=== PATIENT | male | born 1950 | race Caucasian/White ===

== ENCOUNTER 2017-09-05 17:25 | Emergency (ER) | payer MEDICARE, OTHER ==
--- OUTSIDE RECORDS SUMMARY | 2017-09-05 17:41 | XMS REPORT ---
:1950 External Reference #:[id number] Author Organization [facility] Address [address] [address] Phone [phone] Care Team Providers Name Role Phone Primitivo Miranda MD Care Team Information Hvac Service Manager Unavailable Will Candelario MD Primary Care Physician Unavailable Payers Type Date Identification Numbers Payment Provider Subscriber Medicare Primary Policy Number: [id number] Medicare Ian Wagner PayID: [id number] [address] [place] [address] Medigap Part B Policy Number: [id number] For Life Ian Wagner PayID: [id number] [address] [place] [address] Problems Date Description Provider Status Onset: 11/23/2011 Coronary arteriosclerosis Antonio Meraz M.D. Active Onset: 11/23/2011 Premature beats Antonio Meraz M.D. Active Onset: 11/23/2011 Hyperlipidemia Antonio Meraz M.D. Active Onset: 11/23/2011 Benign essential hypertension Antonio Meraz M.D. Active Onset: 11/23/2011 Morbid obesity Antonio Meraz M.D. Active Onset: 07/26/2012 Electrocardiogram abnormal Antonio Meraz M.D. Active Onset: 07/26/2012 Right bundle branch block Antonio Meraz M.D. Active Onset: 09/10/2015 Essential hypertension Antonio Meraz M.D. 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 ETOH Use Denies alcohol use Smoking Patient is a former smoker 1 1/2 pk daily smoked 35 yrs quit in 1999 Recreational Drug Use Denies Drug Use Daily Caffeine Consumes on average 5 cups of regular coffee per day Enjoy Exercising Regular Exercise Type/Frequency Exercises regularly Allergies, Adverse Reactions, Alerts Date Description Reaction Status Severity Comments 12/01/2010 NKDA active Medications Medication Date Status Form Strength Qnty SIG Indications Ordering Provider Prilosec OTC 08/31/ Active Tablets DR 20mg Pt states Nabor PReece 2017 this is MD Judith occasional Toprol XL 01/09/ Active Tablets ER 25mg 90tab 1 by mouth Antonio 2010 24HR s every day Lion Meraz M.D. B 12 / Active Capsules 30cap 1 po qd Unknown 0000 s Flintstones / Active Chewtabs 60mg daily Unknown Complete 0000 Aspir-Low / Active Tablets DR 81mg 1 by mouth Unknown 0000 every day Valacyclovir / Active Tablets 1gm 1 tablets Unknown HCL 0000 every 8 hours for 7 days Lisinopril / Hx Tablets 20mg 1 po qd Unknown 0000 - 2012 Zocor / Hx Tablets 20mg 30tab 1 po qhs Unknown 0000 - s 2012 Nasonex / Hx Suspension 50mcg/Act 1unit 2 sprays to Unknown 0000 - s each 03/28/ tril 2012 twice daily Ferrous / Hx Tablets 325(65Fe) 1 po qd Unknown Sulfate 0000 - mg 2012 Asa / Hx 81mg 30uni 1 po qd Unknown 0000 ts Caltrate / Hx Chewtabs 600mg 1 po daily Unknown 0000 - 2012 Vital Signs Date Vital Result Comment 08/26/2017 Height 72 inches 6'0" Weight 198.00 lb with shoes Heart Rate 58 /min BP Systolic 124 mmHg L/Arm Reg Cuff BP Diastolic 78 mmHg L/Arm Reg Cuff BMI (Body Mass Index) 26.9 kg/m2 Ejection Fraction 55-60% Echocardiogram 12/25/2016 11/30/2016 Height 72 inches 6'0" Weight 195.00 lb with shoes Heart Rate 72 /min BP Systolic Sitting 126 mmHg LA reg cuff BP Diastolic Sitting 78 mmHg LA reg cuff BMI (Body Mass Index) 26.4 kg/m2 Ejection Fraction 50% - 55% echo 01/12/11 08/31/2016 Height 72 inches 6'0" Weight 191.00 lb Heart Rate 68 /min BP Systolic 132 mmHg BP Diastolic 82 mmHg Respiratory Rate 16 /min Body Temperature 97.6 F BMI (Body Mass Index) 25.9 kg/m2 05/21/2016 Height 72 inches 6'0" Weight 189.00 lb with shoes Heart Rate 62 /min BP Systolic Sitting 126 mmHg LA lrg cuff BP Diastolic Sitting 80 mmHg LA lrg cuff BMI (Body Mass Index) 25.6 kg/m2 Ejection Fraction 50% - 55% echo 01/12/11 11/29/2015 Height 72 inches 6'0" Weight 189.50 lb Heart Rate 60 /min BP Systolic Sitting 132 mmHg LA reg cuff BP Diastolic Sitting 78 mmHg LA reg cuff BP Systolic Standing 130 mmHg LA BP Diastolic Standing 78 mmHg LA Respiratory Rate 16 /min BMI (Body Mass Index) 25.7 kg/m2 09/10/2015 Height 72 inches 6'0" Weight 187.25 lb w/shoes Heart Rate 62 /min BP Systolic Sitting 126 mmHg LA reg cuff BP Diastolic Sitting 74 mmHg LA reg cuff BMI (Body Mass Index) 25.4 kg/m2 Ejection Fraction 50-55 echo 01/12/11 11/13/2014 Height 72 inches 6'0" Weight 181.75 lb w/ shoes Heart Rate 70 /min BP Systolic Sitting 128 mmHg LA, reg BP Diastolic Sitting 70 mmHg LA, reg BMI (Body Mass Index) 24.6 kg/m2 Ejection Fraction 65% 01/15/11 Cath 05/18/2014 Height 72 inches 6'0" Weight 175.00 lb with shoes Heart Rate 60 /min BP Systolic Sitting 130 mmHg LA reg cuff BP Diastolic Sitting 80 mmHg LA reg cuff BP Systolic Standing 132 mmHg LA reg cuff BP Diastolic Standing 84 mmHg LA reg cuff Respiratory Rate 16 /min BMI (Body Mass Index) 23.7 kg/m2 11/27/2013 Height 72 inches 6'0" Weight 179.00 lb Heart Rate 76 /min BP Systolic Sitting 142 mmHg BP Diastolic Sitting 72 mmHg BMI (Body Mass Index) 24.3 kg/m2 03/28/2013 Height 72 inches 6'0" Weight 165.00 lb Heart Rate 54 /min BP Systolic 116 mmHg BP Diastolic 64 mmHg BMI (Body Mass Index) 22.4 kg/m2 07/26/2012 Height 72 inches 6'0" Weight 195.00 lb Heart Rate 68 /min BP Systolic Sitting 124 mmHg has not taken meds today BP Diastolic Sitting 88 mmHg has not taken meds today Respiratory Rate 20 /min BMI (Body Mass Index) 26.4 kg/m2 11/23/2011 Height 72 inches 6'0" Weight 298.00 lb Heart Rate 71 /min BP Systolic 132 mmHg BP Diastolic 78 mmHg BMI (Body Mass Index) 40.4 kg/m2 01/21/2011 Height 72 inches 6'0" Weight 296.00 lb Heart Rate 72 /min BP Systolic Sitting 128 mmHg BP Diastolic Sitting 62 mmHg BMI (Body Mass Index) 40.1 kg/m2 12/01/2010 Height 72 inches 6'0" Weight 301.25 lb Heart Rate 88 /min BP Systolic Sitting 150 mmHg L BP Diastolic Sitting 82 mmHg L BMI (Body Mass Index) 40.9 kg/m2 Results Test Date Test Result H/L Range Note Iron & Iron Binding Capacity 08/17/2016 Iron 116 g/dL 50-212 Unsaturated Iron Binding 175 g/dL Total Iron Binding Capacity 291 g/dL 250-450 % Iron Saturation 40 % 15-55 Comp Metabolic Panel 08/17/2016 Sodium 137 mmol/L 133-145 Potassium 4.8 mmol/L 3.5-5.0 Chloride 102 mmol/L 101-111 Co2 Carbon Dioxide 32 mmol/L 22-32 Anion Gap 3 mmol/L 2-11 Glucose 97 mg/dL 70-100 Blood Urea Nitrogen 10 mg/dL 6-24 Creatinine 0.82 mg/dL 0.67-1.17 BUN/Creatinine Ratio 12.2 8-20 Calcium 9.8 mg/dL 8.6-10.3 Total Protein 6.5 g/dL 6.4-8.9 Albumin 4.0 g/dL 3.2-5.2 Globulin 2.5 g/dL 2-4 Albumin/Globulin Ratio 1.6 1-3 Total Bilirubin 0.60 mg/dL 0.2-1.0 Alkaline Phosphatase 45 U/L 34-104 Alt 15 U/L 7-52 Ast 18 U/L 13-39 Egfr Non- 93.4 >60 Egfr 120.2 >60 1 Bariatric Panel Post Op 08/17/2016 Vitamin B12 390 pg/mL 180-914 2 Folic Acid (Folate) > 20.00 ng/mL >3.99 3 Vitamin B1 (Whole Blood) 178 nmol/L 70-180 4 Vitamin E Level 8.8 mg/L 5.5 - 17.0 5 Laboratory test finding 11/28/2015 PSA Diagnostic < 0.008 ng/mL 0-4.0 6 Laboratory test finding 07/02/2014 Ferritin 134.2 ng/mL 24-336 7, 8 Vitamin B12 355 pg/mL 180-914 7, 9 Folate > 20.00 ng/mL >3.99 7, 10 Vitamin B1 Whole Blood 175 nmol/L 70-180 7, 11 Vitamin E Level 11.4 mg/L 5.5 - 17.0 7, 12 Iron & Iron Binding Capacity 07/02/2014 Iron 111 g/dL 50-212 7 Unsaturated Iron Binding 169 g/dL 7 Total Iron Binding Capacity 280 g/dL 250-450 7 % Iron Saturation 40 % 15-55 7 Comp Metabolic Panel 07/02/2014 Sodium 135 mmol/L 133-145 7 Potassium 4.2 mmol/L 3.5-5.0 7 Chloride 102 mmol/L 101-111 7 Co2 Carbon Dioxide 28 mmol/L 22-32 7 Anion Gap 5 mmol/L 2-11 7 Glucose 96 mg/dL 70-100 7 Blood Urea Nitrogen 12 mg/dL 6-24 7 Creatinine 0.72 mg/dL 0.67-1.17 7 BUN/Creatinine Ratio 16.7 8-20 7 Calcium 9.2 mg/dL 8.6-10.3 7 Total Protein 6.9 g/dL 6.4-8.9 7 Albumin 4.1 g/dL 3.2-5.2 7 Globulin 2.8 g/dL 2-4 7 Albumin/Globulin Ratio 1.5 1-3 7 Total Bilirubin 0.60 mg/dL 0.2-1.0 7 Alkaline Phosphatase 47 U/L 34-104 7 Alt 16 U/L 7-52 7 Ast 20 U/L 13-39 7 Egfr Non- 109.2 >60 7 Egfr 140.5 >60 7, 13 CBC Auto Diff 07/02/2014 White Blood Count 4.8 10^3/uL 4.8-10.8 7 Red Blood Count 5.25 10^6/uL 4.0-5.4 7 Hemoglobin 15.3 g/dL 14.0-18.0 7 Hematocrit 46 % 42-52 7 Mean Corpuscular Volume 87 fL 80-94 7 Mean Corpuscular Hemoglobin 29 pg 27-31 7 Mean Corpuscular HGB Conc 34 g/dL 31-36 7 Red Cell Distribution Width 14 % 10.5-15 7 Platelet Count 173 10^3/uL 150-450 7 Mean Platelet Volume 8 um3 7.4-10.4 7 Abs Neutrophils 2.8 10^3/uL 1.5-7.7 7 Abs Lymphocytes 1.2 10^3/uL 1.0-4.8 7 Abs Monocytes 0.7 10^3/uL 0-0.8 7 Abs Eosinophils 0.1 10^3/uL 0-0.6 7 Abs Basophils 0 10^3/uL 0-0.2 7 Abs Nucleated RBC 0.01 10^3/uL 7 Granulocyte % 58.7 % 38-83 7 Lymphocyte % 25.2 % 25-47 7 Monocyte % 14.0 % High 1-9 7 Eosinophil % 1.1 % 0-6 7 Basophil % 1.0 % 0-2 7 Nucleated Red Blood Cells % 0.2 7 1 Because ethnic data is not always readily available, this report includes an eGFR for both -Americans and non- Americans. The National Kidney Disease Education Program (NKDEP) does not endorse the use of the MDRD equation for patients that are not between the ages of 18 and 70, are , have extremes of body size, muscle mass, or nutritional status, or are non- or non-. According to the National Kidney Foundation, irrespective of diagnosis, the stage of the disease is based on the level of kidney function: Stage Description GFR(mL/min/1.73 m(2)) 1 Kidney damage with normal or decreased GFR 90 2 Kidney damage with mild decrease in GFR 60-89 3 Moderate decrease in GFR 30-59 4 Severe decrease in GFR 15-29 5 Kidney failure <15 (or dialysis) 2 Normal Range 180 to 914 Indeterminate Range 145 to 180 Deficient Range <145 3 FASTING 4 ADDITIONAL INFORMATION This test was developed and its performance characteristics determined by [facility] in a manner consistent with CLIA requirements. This test has not been cleared or approved by the U.S. Food and Drug Administration. Test Performed by: [facility] [place] [address] Roll On Man: Conrad Campos II, M.D., Ph.D. 5 ADDITIONAL INFORMATION This test was developed and its performance characteristics determined by [facility] in a manner consistent with CLIA requirements. This test has not been cleared or approved by the U.S. Food and Drug Administration. Test Performed by: [facility] [place] [address] Roll On Man: Conrad Campos II, M.D., Ph.D. 6 Serum levels of PSA measured using the Yudy Clacendix DXI Hybritech immunoassay should not be interpreted as absolute evidence of the presence or absence of disease. The PSA value should be used in conjunction with other pertinent clinical diagnostic procedures. A PSA value in the range of 0.1 to 0.6 ng/ml is indeterminate if being used as an indicator of recurrent or residual disease. The values obtained with different assay methods or kits cannot be used interchangeably. 7 FASTING 8 FASTING 9 Normal Range 180 to 914 Indeterminate Range 145 to 180 Deficient Range <145 10 FASTING 11 Test Performed by: [place] [address] Roll On Man: Heide Cheema, Ph.D. 12 Test Performed by: [place] [address] Roll On Man: Heide Cheema, Ph.D. 13 Because ethnic data is not always readily available, this report includes an eGFR for both -Americans and non- Americans. The National Kidney Disease Education Program (NKDEP) does not endorse the use of the MDRD equation for patients that are not between the ages of 18 and 70, are , have extremes of body size, muscle mass, or nutritional status, or are non- or non-. According to the National Kidney Foundation, irrespective of diagnosis, the stage of the disease is based on the level of kidney function: Stage Description GFR(mL/min/1.73 m(2)) 1 Kidney damage with normal or decreased GFR 90 2 Kidney damage with mild decrease in GFR 60-89 3 Moderate decrease in GFR 30-59 4 Severe decrease in GFR 15-29 5 Kidney failure <15 (or dialysis) Procedures Date CPT Code Description Status 08/26/2017 26405 EKG Tracing & Interpretation Completed 01/27/2017 25048 Treadmill Interp/Report Only Completed 01/27/2017 01153 Stress Test Supervsn W/Out I/R Completed 12/25/2016 86951 ECHO Transthoracic, Real-Time 2D With Doppler And Color Completed Flow 11/30/2016 82809 EKG Tracing & Interpretation Completed 05/21/2016 97343 EKG Tracing & Interpretation Completed 11/29/2015 43463 EKG Tracing & Interpretation Completed 09/10/2015 18886 EKG Tracing & Interpretation Completed 03/14/2015 86431 Treadmill Interp/Report Only Completed 03/14/2015 54443 Stress Test Supervsn W/Out I/R Completed 11/13/2014 01354 EKG Tracing & Interpretation Completed 11/27/2013 95233 EKG Tracing & Interpretation Completed 10/26/2013 89731 Holter Monitoring 24 HR New Completed 03/28/2013 09280 EKG Tracing & Interpretation Completed 08/16/2012 64472 Holter Monitoring 24 HR New Completed 07/26/2012 19012 EKG Tracing & Interpretation Completed 11/23/2011 96147 EKG Tracing & Interpretation Completed 01/12/2011 34735 ECHO Transthoracic, Real-Time 2D With Doppler And Color Completed Flow 01/12/2011 14545 ECHO Transthoracic, Real-Time 2D With Doppler And Color Completed Flow 01/12/2011 95220 Holter Monitor Completed 01/12/2011 20416 Holter Monitor Completed 01/12/2011 73469 Holter Monitoring 24 HR New Completed 01/08/2011 23357 Treadmill Interp/Report Only Completed 01/08/2011 38801 Stress Test Supervsn W/Out I/R Completed 12/01/2010 64981 EKG Tracing & Interpretation Completed Encounters Type Date Location Provider CPT E/M Dx Office Visit 11/30/2016 1:40p [facility] [place]. [address] I25.10 Chuy Meraz I10 I45.19 E78.4 Office Visit 08/31/2016 10:15a [facility] [place] [address] Z98.84 [facility] Office Visit 05/21/2016 9:00a [facility] Qutaybeh S. [address]855 I25.10 Chuy Meraz I10 I45.19 I49.3 Office Visit 11/29/2015 11:00a [facility] NIKOLE Reyes [address]3226 I25.10 I10 I45.19 I49.3 Office Visit 09/10/2015 11:00a [facility] Qutaybeh SReece Meraz, 86382 I25.10 Chuy R94.31 I10 E78.4 I45.19 Office Visit 11/13/2014 1:20p [facility] Mildredtaybeh SReece Meraz, 83507 401.1 M.DReece 414.01 272.4 794.31 426.4 Office Visit 05/18/2014 1:30p [facility] NIKOLE Reyes [id number] 401.1 414.01 272.4 794.31 Office Visit 11/27/2013 9:00a [facility] Reece, [address]79 427.69 M.D. 401.1 414.01 272.4 794.31 Office Visit 03/28/2013 8:40a [facility] Meraz, [address] 427.69 M.D. 401.1 414.01 272.4 794.31 Office Visit 08/10/2012 1:30p [facility] [place] [address] 401.1 Office Visit 07/26/2012 10:00a [facility] Lion Reece, 623[address] 414.01 M.D. 427.69 272.4 794.31 426.4 Office Visit 11/23/2011 10:00a [facility] Alysha. [address] 414.01 [facility] Chuy Meraz 427.69 272.4 401.1 278.01 Office Visit 01/21/2011 10:00a [facility] Alysha Chevy, 52430 414.01 M.D. 427.69 272.4 401.1 278.01 Office Visit 01/08/2011 9:30a [facility] Lion Reece, 37495 794.31 M.D. 427.69 427.1 401.1 v72.81 Office Visit 12/01/2010 10:20a [facility] Reece, 609[address] 786.05 M.D. 794.31 427.69 782.3 272.4 401.1 Plan of Care 08/26/2017 - Antonio Meraz M.D.I25.10 [facility] heart disease of [place] coronary artery w/o ang pctrsNew Orders:Stress Test, Pharmacologic Nuclear ( Lexiscan)EchocardiogramFollow up:9 months ovI10 Essential (primary) hbaopcpbxzwkF31.19 Other right bundle-branch bksvbY43.3 Ventricular premature depolarization
--- OUTSIDE RECORDS SUMMARY | 2017-09-05 17:42 | XMS REPORT ---
:1950 External Reference #:[id number] Author Organization [facility] Address [address] [place] [address] Phone [phone] Care Team Providers Name Role Phone Will Candelario MD Care Team Information Director Of Outside Sales Unavailable Will Candelario MD Primary Care Physician Unavailable Payers Type Date Identification Numbers Payment Provider Subscriber Medicare Primary Effective: Policy Number: Medicare [place] Ian Wagner 2014 [id number] PayID: [id number] [address] [place] [address] Medigap Part B Effective: Policy Number: Rohan Garcia 2008 [id number] Expires: 2017 PayID: [id number] [address] Attn: [place] [address] Commercial Effective: Policy Number: Jose Wagner 2013 [id number] [facility] To [facility] PayID: [id number] [address] [place] [address] Problems Date Description Provider Status Onset: 12/20/2012 Hyperlipidemia Will Candelario M.D. Active Onset: 09/13/2012 Eruption Will Candelario M.D. Active Onset: 06/28/2012 Bariatric Surgery Status Will Candelario M.D. Active Onset: 10/14/2011 Conduction disorder of the heart Will Candelario M.D. Active Onset: 10/14/2011 Cataract Will Candelario M.D. Active Onset: 07/24/2010 Essential hypertension Master Murray M.D. Active Social History Description No Information Available Allergies, Adverse Reactions, Alerts Date Description Reaction Status Severity Comments 10/14/2011 NKDA active Medications Medication Date Status Form Strength Qnty SIG Indications Ordering Provider Valtrex 08/20/ Active Tablets 1gm 21tab take one Sis CReece 2017 s by mouth Silvino, three LUMBER PULLER times daily for 1 week Lotrisone 09/13/ Active Cream 1-0.05% 30uni use on Sis C. 2012 ts skin twice Silvino, a day LUMBER PULLER Multi-Vitamin / Active Unknown With Iron 0000 Toprol XL / Active 25mg 1 po qd Unknown 0000 Vitamin B-12 / Active Tablets Sub 1000mcg 30tab 1 po qd Unknown 0000 s Aspirin Adult / Active Tablets DR 81mg 1 by mouth Unknown Low Strength 0000 every day Diflucan 08/06/ Hx Tablets 150mg 2tabs 1 po times Will Bundy 2012 - day, november, 09/13/ repeat in M.D. 2012 5-7d Ketoconazole 06/28/ Hx Cream 2% 30gm apply thin Joan 2012 - layer Sherry, 08/19/ twice a [employer]ERSON 2017 to affected area. Iron 11/03/ Hx Tablets 325(65Fe) 90tab 1 po qd Primitivo Gutierrez 2010 - mg s Ruth 10/13/ M.D. 2011 Lisinopril 10/27/ Hx Tablets 20mg 90tab Take One Langford AReece 2010 - s Tablet By Ruth, 06/28/ Mouth Once M.D. 2011 Daily Wheelchair 10/06/ Hx 1unit for Will Bundy 2010 - s severe Breiman, 10/06/ arthritis M.D. 2010 Nasonex 09/15/ Hx Suspension 50mcg/Act 1unit 2 Will Bundy 2010 - s sprays/nos Breiman, 06/28/ tril/day M.D. 2011 Nasonex 09/15/ Hx Suspension 50mcg/Act 1unit Use 2 Will Bundy 2010 - s Sprays In [facility], 08/28/ Each M.D. 2015 Nostril Once Daily Work Note 07/24/ Hx no work Master Vogel 2010 - 07/22-07/25 Midura, 10/06/ due to M.D. 2011 illness Augmentin 09/28/ Hx Tablets 875mg 28tab 1 po bid Tamia 2008 - s with food von 04/16/ Felten, 2008 M.D. take with yogurt Zocor 08/02/ Hx Tablets 20mg 30tab Take One Will Bundy 2007 - s Tablet By Andree, 06/28/ Mouth At M.D. 2011 Bedtime Zocor 08/02/ Hx Tablets 20mg 30tab Take One Will Bundy 2007 - s Tablet By Andree, 06/28/ Mouth At M.D. 2011 Bedtime Zocor 01/25/ Hx Tablets 20mg 30tab 1 po qhs Will Bundy 2007 - s Melanyimadenis, 08/02/ M.D. 2008 Zestril 04/24/ Hx Tablets 10mg 90tab 1 po qd Will Bundy 2002 - s Andree, 10/27/ M.D. 2010 Augmentin 09/07/ Hx 875mg 20uni 1 po bid Master Jaspreet 2002 - ts Midura, 03/20/ M.D. 2008 Lipitor 08/15/ Hx Tabs 10mg 30tab 1 po qd Will Bundy 2002 - s Andree, 01/25/ M.D. 2007 Lidex Cream 08/15/ Hx 0.5% 30gm apply bid Will Bundy 2002 - Andree, 12/17/ M.D. 2006 Elavil 06/28/ Hx 10mg 50uni 1-2 PO QHS Jimmie Seymour 2001 - ts Mario, 10/17/ M.D. 2003 Valtrex 06/17/ Hx 500mg 42uni 2 Tabs tid Jimmie Seymour 2001 - ts X 7D [place], 06/24/ M.D. 2002 Calan SR 02/11/ Hx Tablets 240mg 90tab 1qd Will Bundy 1999 - s Andree, 04/24/ M.D. 2003 Dyazide 12/15/ Hx 37.5/25 30uni 1 PO qd Jimmie Seymour 1999 - ts [place], 08/14/ M.D. 2004 Augmentin 10/28/ Hx Piyush Spivey 1998 - [place], 11/07/ M.D. 1998 Cortisporin 10/28/ Hx Solution 15cc 3-4 gtts Piyush Spivey Otic 1998 - To L Ear Veronica, 11/27/ tid M.DReece 1998 Zyrtec 10/09/ Hx Tabs 10mg 30tab 1 PO qd Naida 1998 - s Derrick, 04/15/ Maggie-C 2000 Vitamin D 3 / Hx Unknown 0000 - 2011 Medications Administered in Office Medication Date Status Form Strength Qnty SIG Indications Ordering Provider Injection 04/22/ Administered Injection Will Bundy Subcutaneous Or 2009 Breiman, Intramuscular M.DReece Vital Signs Date Vital Result Comment 08/20/2017 BP Systolic 134 mmHg BP Diastolic 72 mmHg Heart Rate 78 /min Body Temperature 97.7 F Height 73 inches 6'1" Weight 200.50 lb BMI (Body Mass Index) 26.4 kg/m2 11/23/2016 BP Systolic 130 mmHg BP Diastolic 80 mmHg Heart Rate 76 /min Body Temperature 98.4 F Respiratory Rate 16 /min Height 73 inches 6'1" Weight 193.00 lb BMI (Body Mass Index) 25.5 kg/m2 07/21/2016 BP Systolic 140 mmHg BP Diastolic 82 mmHg Heart Rate 66 /min Body Temperature 98.1 F Height 73 inches 6'1" Weight 189.50 lb BMI (Body Mass Index) 25.0 kg/m2 08/28/2014 BP Systolic 124 mmHg BP Diastolic 80 mmHg Heart Rate 56 /min irr Body Temperature 97.1 F Respiratory Rate 18 /min Height 73 inches 6'1" Weight 182.00 lb BMI (Body Mass Index) 24.0 kg/m2 12/20/2012 BP Systolic 120 mmHg BP Diastolic 78 mmHg Height 73 inches 6'1" Weight 173.00 lb BMI (Body Mass Index) 22.8 kg/m2 09/13/2012 BP Systolic 124 mmHg BP Diastolic 80 mmHg Heart Rate 64 /min Body Temperature 97.4 F Respiratory Rate 12 /min Height 73 inches 6'1" Weight 182.00 lb BMI (Body Mass Index) 24.0 kg/m2 06/28/2012 BP Systolic 130 mmHg BP Diastolic 90 mmHg Heart Rate 68 /min Body Temperature 97.0 F Height 73 inches 6'1" Weight 209.00 lb BMI (Body Mass Index) 27.6 kg/m2 10/14/2011 BP Systolic 124 mmHg BP Diastolic 84 mmHg Heart Rate 66 /min irregular Body Temperature 97.2 F Height 73 inches 6'1" Weight 295.00 lb BMI (Body Mass Index) 38.9 kg/m2 11/17/2010 BP Systolic 116 mmHg BP Diastolic 76 mmHg Heart Rate 78 /min Body Temperature 97.5 F Height 73 inches 6'1" Weight 301.00 lb BMI (Body Mass Index) 39.7 kg/m2 10/27/2010 BP Systolic 140 mmHg BP Diastolic 70 mmHg Heart Rate 80 /min Body Temperature 98.8 F Respiratory Rate 22 /min Height 73 inches 6'1" Weight 302.00 lb BMI (Body Mass Index) 39.8 kg/m2 10/06/2010 BP Systolic 130 mmHg BP Diastolic 90 mmHg Heart Rate 72 /min Respiratory Rate 15 /min Height 73 inches 6'1" Weight 302.00 lb BMI (Body Mass Index) 39.8 kg/m2 07/24/2010 BP Systolic 134 mmHg BP Diastolic 84 mmHg Heart Rate 78 /min Body Temperature 98.2 F Height 73 inches 6'1" Weight 296.00 lb BMI (Body Mass Index) 39.0 kg/m2 04/22/2010 BP Systolic 130 mmHg BP Diastolic 70 mmHg Heart Rate 88 /min Height 73 inches 6'1" Weight 300.00 lb BMI (Body Mass Index) 39.6 kg/m2 10/14/2009 BP Systolic 122 mmHg BP Diastolic 78 mmHg Heart Rate 68 /min Weight 300.00 lb 04/16/2009 BP Systolic 108 mmHg BP Diastolic 72 mmHg Heart Rate 88 /min Height 73 inches 6'1" Weight 297.00 lb BMI (Body Mass Index) 39.2 kg/m2 09/28/2008 BP Systolic 150 mmHg BP Diastolic 80 mmHg Heart Rate 84 /min Body Temperature 97.7 F Height 73 inches 6'1" Weight 290.00 lb BMI (Body Mass Index) 38.3 kg/m2 03/20/2008 BP Systolic 122 mmHg BP Diastolic 80 mmHg Heart Rate 68 /min Height 73 inches 6'1" Weight 291.00 lb BMI (Body Mass Index) 38.4 kg/m2 09/15/2007 BP Systolic 110 mmHg BP Diastolic 76 mmHg Heart Rate 84 /min Body Temperature 98.5 F Height 73 inches 6'1" Weight 279.00 lb BMI (Body Mass Index) 36.8 kg/m2 08/02/2007 BP Systolic 112 mmHg BP Diastolic 76 mmHg Heart Rate 76 /min Body Temperature 97.3 F Height 73 inches 6'1" Weight 284.00 lb BMI (Body Mass Index) 37.5 kg/m2 01/04/2007 BP Systolic 114 mmHg BP Diastolic 70 mmHg Heart Rate 84 /min Body Temperature 99.2 F Height 73 inches 6'1" Weight 272.00 lb BMI (Body Mass Index) 35.9 kg/m2 08/31/2006 BP Systolic 128 mmHg BP Diastolic 76 mmHg Heart Rate 78 /min Body Temperature 97.7 F Height 73 inches 6'1" Weight 286.00 lb BMI (Body Mass Index) 37.7 kg/m2 06/29/2006 BP Systolic 128 mmHg BP Diastolic 74 mmHg Heart Rate 66 /min Height 73 inches 6'1" Weight 279.00 lb BMI (Body Mass Index) 36.8 kg/m2 12/17/2005 BP Systolic 120 mmHg BP Diastolic 84 mmHg Heart Rate 84 /min Height 73 inches 6'1" Weight 276.00 lb BMI (Body Mass Index) 36.4 kg/m2 08/17/2005 BP Systolic 140 mmHg BP Diastolic 70 mmHg Heart Rate 88 /min Height 73 inches 6'1" Weight 284.00 lb BMI (Body Mass Index) 37.5 kg/m2 08/05/2004 BP Systolic 112 mmHg BP Diastolic 72 mmHg Heart Rate 72 /min Height 73 inches 6'1" Weight 264.00 lb BMI (Body Mass Index) 34.8 kg/m2 08/14/2003 BP Systolic 110 mmHg BP Diastolic 70 mmHg Heart Rate 72 /min Height 73 inches 6'1" Weight 250.00 lb BMI (Body Mass Index) 33.0 kg/m2 05/01/2003 BP Systolic 122 mmHg BP Diastolic 78 mmHg Heart Rate 68 /min Height 73 inches 6'1" 10/17/2002 BP Systolic 130 mmHg BP Diastolic 70 mmHg Heart Rate 80 /min Height 73 inches 6'1" Weight 266.00 lb BMI (Body Mass Index) 35.1 kg/m2 09/07/2002 BP Systolic 130 mmHg BP Diastolic 76 mmHg Heart Rate 80 /min Body Temperature 97.4 F Height 73 inches 6'1" Weight 258.00 lb BMI (Body Mass Index) 34.0 kg/m2 08/15/2002 BP Systolic 138 mmHg BP Diastolic 80 mmHg Heart Rate 76 /min Height 73 inches 6'1" Weight 268.00 lb BMI (Body Mass Index) 35.4 kg/m2 06/28/2002 BP Systolic 130 mmHg BP Diastolic 80 mmHg Heart Rate 72 /min Height 73 inches 6'1" Weight 263.00 lb BMI (Body Mass Index) 34.7 kg/m2 06/17/2002 BP Systolic 134 mmHg BP Diastolic 88 mmHg Body Temperature 98.6 F Height 73 inches 6'1" Weight 262.00 lb BMI (Body Mass Index) 34.6 kg/m2 01/06/2002 BP Systolic 118 mmHg LG Cuff BP Diastolic 80 mmHg LG Cuff Heart Rate 76 /min Height 73 inches 6'1" Weight 259.00 lb BMI (Body Mass Index) 34.2 kg/m2 09/19/2001 BP Systolic 114 mmHg BP Diastolic 70 mmHg Heart Rate 72 /min Body Temperature 97.9 F Height 73 inches 6'1" Weight 264.00 lb BMI (Body Mass Index) 34.8 kg/m2 09/12/2001 BP Systolic 124 mmHg BP Diastolic 76 mmHg Heart Rate 80 /min Body Temperature 99.8 F Height 73 inches 6'1" Weight 261.00 lb BMI (Body Mass Index) 34.4 kg/m2 07/29/2001 BP Systolic 116 mmHg BP Diastolic 72 mmHg Height 73 inches 6'1" Weight 259.00 lb BMI (Body Mass Index) 34.2 kg/m2 04/15/2001 BP Systolic 130 mmHg BP Diastolic 80 mmHg Heart Rate 84 /min Height 73 inches 6'1" Weight 257.00 lb BMI (Body Mass Index) 33.9 kg/m2 05/31/2000 BP Systolic 130 mmHg BP Diastolic 82 mmHg Heart Rate 72 /min Height 73 inches 6'1" Weight 254.00 lb BMI (Body Mass Index) 33.5 kg/m2 03/15/2000 BP Systolic 134 mmHg BP Diastolic 78 mmHg Heart Rate 66 /min Height 73 inches 6'1" 02/12/2000 BP Systolic 126 mmHg LG Cuff BP Diastolic 90 mmHg LG Cuff Heart Rate 72 /min Body Temperature 97.7 F Height 73 inches 6'1" Weight 262.00 lb BMI (Body Mass Index) 34.6 kg/m2 12/16/1999 BP Systolic 156 mmHg LA LG Cuff BP Diastolic 92 mmHg LA LG Cuff Heart Rate 96 /min Reg Height 73 inches 6'1" Weight 254.00 lb BMI (Body Mass Index) 33.5 kg/m2 11/11/1998 Height 73 inches 6'1" Weight 228.00 lb 10/28/1998 Body Temperature 97.4 F Oral Height 73 inches 6'1" 10/09/1998 BP Systolic 136 mmHg BP Diastolic 82 mmHg Body Temperature 97.8 F Height 73 inches 6'1" Results Test Date Test Result H/L Range Note Complete Blood Count 07/21/2016 WBC 5.6 x10^3/UL 3.6-9.6 RBC 5.47 x10^6/UL 3.90-5.70 HGB 16.4 g/dL 12.1-17.2 HCT 47 % 36-50 MCV 87.0 fL 82.2-97.4 MCH 30.0 pg 27.6-33.3 MCHC 34.7 g/dL 33.0-35.5 RDW 13.9 % High 11.6-13.7 PLT 213 x10^3/UL 150-400 MPV 5.7 fL Low 7.4-10.4 Gran # 4.0 x10^3/UL 1.5-7.2 Lymph# 1.2 x10^3/UL 0.7-4.9 [place]# 0.4 x10^3/UL 0.1-0.9 Gran % 69.3 % 42.2-75.2 Lymph % 22.8 % 20.5-51.1 [place]% 7.9 % 1.7-9.3 Ua - Non Micro (a) 07/21/2016 Appearance clera Color yellow Glucose, Urine (a/[facility]/CTX) neg Bilirubin neg Ketones trace SP Grav 1.020 Blood neg PH 6.0 Protein neg Urobil 1.0 Nitrite neg Leukocytes ([facility]/Centrex) neg Comprehensive Metabolic Prof 07/21/2016 Sodium 138 mEq/L 134-149 Potassium 5.5 mEq/L 3.6-5.5 Chloride 94 mEq/L 94-112 Carbon Dioxide 27 mEq/L 21-32 Glucose 107 mg/dL High 70-105 BUN 10 mg/dL 6-26 Creatinine 0.7 mg/dL 0.6-1.4 BUN/Creat Ratio 14.3 CALC 8.0-36.0 Calcium 9.8 mg/dL 8.6-10.2 Total Protein 6.7 g/dL 6.4-8.3 Albumin 4.2 g/dL 3.8-5.5 Globulin 2.5 g/dL 2.0-4.8 A/G Ratio 1.7 CALC 0.6-2.3 Alk. Phosphatase 60 U/L 22-95 Alt (SGPT) 26 U/L 7-35 Ast (Sgot) 27 U/L 5-34 Total Bilirubin 0.5 mg/dL 0.2-1.3 GFR Non- >60 ml/min/1.73m^ >=60 GFR >60 ml/min/1.73m^ >=60 Lipid Profile 07/21/2016 Cholesterol 162 mg/dL 120-200 Triglycerides 140 mg/dL 30-200 HDL Cholesterol 70 mg/dL 30-70 LDL (Calculated) 64 CALC 0-129 VLDL Cholesterol 28 mg/dL 0-50 HDL Risk Factor 2.3 CALC 0.0-4.4 Laboratory test finding 11/28/2015 PSA Diagnostic < 0.008 ng/mL 0-4.0 1 Laboratory test finding 11/18/2014 Amylase 36 U/L 29-103 Lipase < 3 U/L Low 11.0-82.0 Creatine Kinase 36 U/L 10-223 Troponin I 0.01 ng/mL <0.03 2 C Reactive Protein 59.06 mg/L High < 5.00 3 Comp Metabolic Panel 11/18/2014 Sodium 132 mmol/L Low 133-145 Potassium 3.8 mmol/L 3.5-5.0 Chloride 99 mmol/L Low 101-111 Co2 Carbon Dioxide 29 mmol/L 22-32 Anion Gap 4 mmol/L 2-11 Glucose 130 mg/dL High 70-100 Blood Urea Nitrogen 10 mg/dL 6-24 Creatinine 0.71 mg/dL 0.67-1.17 BUN/Creatinine Ratio 14.1 8-20 Calcium 9.5 mg/dL 8.6-10.3 Total Protein 6.9 g/dL 6.4-8.9 Albumin 4.2 g/dL 3.2-5.2 Globulin 2.7 g/dL 2-4 Albumin/Globulin Ratio 1.6 1-3 Total Bilirubin 0.90 mg/dL 0.2-1.0 Alkaline Phosphatase 48 U/L 34-104 Alt 18 U/L 7-52 Ast 16 U/L 13-39 Egfr Non- 111.0 >60 Egfr 142.8 >60 4 CBC Auto Diff 11/18/2014 White Blood Count 11.5 10^3/uL High 4.8-10.8 Red Blood Count 5.54 10^6/uL High 4.0-5.4 Hemoglobin 16.7 g/dL 14.0-18.0 Hematocrit 48 % 42-52 Mean Corpuscular Volume 87 fL 80-94 Mean Corpuscular Hemoglobin 30 pg 27-31 Mean Corpuscular HGB Conc 35 g/dL 31-36 Red Cell Distribution Width 14 % 10.5-15 Platelet Count 196 10^3/uL 150-450 Mean Platelet Volume 8 um3 7.4-10.4 Abs Neutrophils 9.7 10^3/uL High 1.5-7.7 Abs Lymphocytes 0.6 10^3/uL Low 1.0-4.8 Abs Monocytes 1.2 10^3/uL High 0-0.8 Abs Eosinophils 0 10^3/uL 0-0.6 Abs Basophils 0 10^3/uL 0-0.2 Abs Nucleated RBC 0.01 10^3/uL Granulocyte % 84.3 % High 38-83 Lymphocyte % 5.2 % Low 25-47 Monocyte % 10.0 % High 1-9 Eosinophil % 0.2 % 0-6 Basophil % 0.3 % 0-2 Nucleated Red Blood Cells % 0.1 Laboratory test finding 11/18/2014 Lactic Acid 1.0 mmol/L 0.5-2.2 B Type Natriuretic Peptide 107 pg/mL 5 Inr/Protime 11/18/2014 Inr 1.08 High 0.78-1.07 Lipid Profile 08/28/2014 Cholesterol 149 mg/dL 120-200 Triglycerides 73 mg/dL 30-200 HDL Cholesterol 46 mg/dL 30-70 LDL (Calculated) 88 CALC 0-129 VLDL Cholesterol 15 mg/dL 0-50 HDL Risk Factor 3.2 CALC 0.0-4.4 Laboratory test finding 07/02/2014 Ferritin 134.2 ng/mL 24-336 6, 7 Vitamin B12 355 pg/mL 180-914 6, 8 Folate > 20.00 ng/mL >3.99 6, 9 Vitamin B1 Whole Blood 175 nmol/L 70-180 6, 10 Vitamin E Level 11.4 mg/L 5.5 - 17.0 6, 11 CBC Auto Diff 07/02/2014 White Blood Count 4.8 10^3/uL 4.8-10.8 6 Red Blood Count 5.25 10^6/uL 4.0-5.4 6 Hemoglobin 15.3 g/dL 14.0-18.0 6 Hematocrit 46 % 42-52 6 Mean Corpuscular Volume 87 fL 80-94 6 Mean Corpuscular Hemoglobin 29 pg 27-31 6 Mean Corpuscular HGB Conc 34 g/dL 31-36 6 Red Cell Distribution Width 14 % 10.5-15 6 Platelet Count 173 10^3/uL 150-450 6 Mean Platelet Volume 8 um3 7.4-10.4 6 Abs Neutrophils 2.8 10^3/uL 1.5-7.7 6 Abs Lymphocytes 1.2 10^3/uL 1.0-4.8 6 Abs Monocytes 0.7 10^3/uL 0-0.8 6 Abs Eosinophils 0.1 10^3/uL 0-0.6 6 Abs Basophils 0 10^3/uL 0-0.2 6 Abs Nucleated RBC 0.01 10^3/uL 6 Granulocyte % 58.7 % 38-83 6 Lymphocyte % 25.2 % 25-47 6 Monocyte % 14.0 % High 1-9 6 Eosinophil % 1.1 % 0-6 6 Basophil % 1.0 % 0-2 6 Nucleated Red Blood Cells % 0.2 6 Iron & Iron Binding Capacity 07/02/2014 Iron 111 g/dL 50-212 6 Unsaturated Iron Binding 169 g/dL 6 Total Iron Binding Capacity 280 g/dL 250-450 6 % Iron Saturation 40 % 15-55 6 Comp Metabolic Panel 07/02/2014 Sodium 135 mmol/L 133-145 6 Potassium 4.2 mmol/L 3.5-5.0 6 Chloride 102 mmol/L 101-111 6 Co2 Carbon Dioxide 28 mmol/L 22-32 6 Anion Gap 5 mmol/L 2-11 6 Glucose 96 mg/dL 70-100 6 Blood Urea Nitrogen 12 mg/dL 6-24 6 Creatinine 0.72 mg/dL 0.67-1.17 6 BUN/Creatinine Ratio 16.7 8-20 6 Calcium 9.2 mg/dL 8.6-10.3 6 Total Protein 6.9 g/dL 6.4-8.9 6 Albumin 4.1 g/dL 3.2-5.2 6 Globulin 2.8 g/dL 2-4 6 Albumin/Globulin Ratio 1.5 1-3 6 Total Bilirubin 0.60 mg/dL 0.2-1.0 6 Alkaline Phosphatase 47 U/L 34-104 6 Alt 16 U/L 7-52 6 Ast 20 U/L 13-39 6 Egfr Non- 109.2 >60 6 Egfr 140.5 >60 6, 12 Laboratory test finding 11/27/2013 PSA Diagnostic < 0.008 ng/mL 0-4.0 13 Laboratory test finding 06/06/2013 PSA Diagnostic < 0.008 ng/mL 0- 4.000 14 CBC Auto Diff 05/22/2013 White Blood Count 4.4 10^3/uL Low 4.8-10.8 Red Blood Count 4.98 10^6/uL 4.0-5.4 Hemoglobin 14.1 g/dL 14.0-18.0 Hematocrit 43 % 42-52 Mean Corpuscular Volume 87 fL 80-94 Mean Corpuscular Hemoglobin 28 pg 27-31 Mean Corpuscular HGB Conc 33 g/dL 31-36 Red Cell Distribution Width 14 % 10.5-15 Platelet Count 182 10^3/uL 150-450 Mean Platelet Volume 8 um3 7.4-10.4 Abs Neutrophils 2.5 10^3/uL 1.5-7.7 Abs Lymphocytes 1.4 10^3/uL 1.0-4.8 Abs Monocytes 0.4 10^3/uL 0-0.8 Abs Eosinophils 0 10^3/uL 0-0.6 Abs Basophils 0 10^3/uL 0-0.2 Abs Nucleated RBC 0 10^3/uL Granulocyte % 57.2 % 38-83 Lymphocyte % 31.7 % 25-47 Monocyte % 9.5 % High 1-9 Eosinophil % 0.7 % 0-6 Basophil % 0.9 % 0-2 Nucleated Red Blood Cells % 0.1 Laboratory test finding 05/22/2013 Ferritin 172 ng/mL 24-336 15 Vitamin B12 367 pg/mL 180-914 16 Folate > 24.8 ng/mL High 2-16 17 Comp Metabolic Panel 05/22/2013 Sodium 136 mmol/L 133-145 Potassium 3.7 mmol/L 3.5-5.0 Chloride 100 mmol/L Low 101-111 Co2 Carbon Dioxide 30.0 mmol/L 22-32 Anion Gap 6.0 mmol/L 2-11 Glucose 88 mg/dL 70-100 Blood Urea Nitrogen 6 mg/dL 6-24 Creatinine 0.70 mg/dL 0.50-1.40 BUN/Creatinine Ratio 8.6 8-20 Calcium 9.3 mg/dL 8.1-9.9 Total Protein 6.0 g/dL Low 6.2-8.1 Albumin 3.7 g/dL 3.2-5.2 Globulin 2.3 g/dL 2-4 Albumin/Globulin Ratio 1.6 1-3 Total Bilirubin 0.9 mg/dL 0.4-1.5 Alkaline Phosphatase 50 U/L 30-110 Alt 14 U/L 14-54 Ast 20 U/L 12-42 Egfr Non- 113.5 >60 Egfr 146.0 >60 18 Vitamin D, 25 Hydroxy 05/22/2013 25-Hydroxy Vitamin D2 <4.0 ng/mL 25-Hydroxy Vitamin D3 28 ng/mL 25-Hydroxy Vitamin D Total 28 ng/mL 19 Iron & Iron Binding Capacity 05/22/2013 Iron 133 g/dL 45-182 Unsaturated Iron Binding 116 g/dL Total Iron Binding Capacity 249 g/dL Low 250-450 % Iron Saturation 53 % 15-55 Laboratory test finding 05/22/2013 Vitamin B1 Whole Blood 118 nmol/L 70- 180 20 Vitamin E Level 9.0 mg/L 5.5 - 17.0 21 Lipid Profile 12/20/2012 Cholesterol 156 mg/dL 120-200 HDL 55 mg/dL 30-70 Triglycerides 78 mg/dL 30-200 HDL Risk Factor 2.8 CALC 0.0-4.4 LDL (Calculated) 85 CALC 0-129 VLDL (Calculated) 16 mg/dL 0-50 CBC Auto Diff 12/08/2012 White Blood Count 4.9 10^3/uL 4.8-10.8 Red Blood Count 5.07 10^6/uL 4.0-5.4 Hemoglobin 15.0 g/dL 14.0-18.0 Hematocrit 45 % 42-52 Mean Corpuscular Volume 88 fL 80-94 Mean Corpuscular Hemoglobin 30 pg 27-31 Mean Corpuscular HGB Conc 34 g/dL 31-36 Red Cell Distribution Width 13 % 10.5-15 Platelet Count 164 10^3/uL 150-450 Mean Platelet Volume 8 um3 7.4-10.4 Abs Neutrophils 3.2 10^3/uL 1.5-7.7 Abs Lymphocytes 1.1 10^3/uL 1.0-4.8 Abs Monocytes 0.6 10^3/uL 0-0.8 Abs Eosinophils 0.1 10^3/uL 0-0.6 Abs Basophils 0 10^3/uL 0-0.2 Abs Nucleated RBC 0 10^3/uL Granulocyte % 64.3 % 38-83 Lymphocyte % 22.4 % Low 25-47 Monocyte % 11.6 % High 1-9 Eosinophil % 1.1 % 0-6 Basophil % 0.6 % 0-2 Nucleated Red Blood Cells % 0 Vitamin D, 25 Hydroxy 12/08/2012 25-Hydroxy Vitamin D2 <4.0 ng/mL 25-Hydroxy Vitamin D3 32 ng/mL 25-Hydroxy Vitamin D Total 32 ng/mL 22 Iron & Iron Binding Capacity 12/08/2012 Iron 67 g/dL 45-182 Unsaturated Iron Binding 208 g/dL Total Iron Binding Capacity 275 g/dL 250-450 % Iron Saturation 24 % 15-55 Comp Metabolic Panel 12/08/2012 Sodium 136 mmol/L 133-145 Potassium 4.0 mmol/L 3.5-5.0 Chloride 102 mmol/L 101-111 Co2 Carbon Dioxide 29.0 mmol/L 22-32 Anion Gap 5.0 mmol/L 2-11 Glucose 99 mg/dL 70-100 Blood Urea Nitrogen 10 mg/dL 6-24 Creatinine 0.80 mg/dL 0.50-1.40 BUN/Creatinine Ratio 12.5 8-20 Calcium 9.4 mg/dL 8.1-9.9 Total Protein 6.1 g/dL Low 6.2-8.1 Albumin 3.7 g/dL 3.2-5.2 Globulin 2.4 g/dL 2-4 Albumin/Globulin Ratio 1.5 1-3 Total Bilirubin 0.7 mg/dL 0.4-1.5 Alkaline Phosphatase 56 U/L 30-110 Alt 17 U/L 14-54 Ast 18 U/L 12-42 Egfr Non- 97.3 >60 Egfr 125.2 >60 23 Laboratory test finding 12/08/2012 Ferritin 155 ng/mL 24-336 24 Vitamin B12 476 pg/mL 180-914 25 Folate > 25.2 ng/mL High 2-16 26 Laboratory test finding 12/08/2012 Vitamin B1 Whole Blood 154 nmol/L 70- 180 27 Vitamin E Level 9.8 mg/L 5.5 - 17.0 28 Laboratory test finding 11/21/2012 PSA Diagnostic 0.00 ng/mL 0-4.0 29 Laboratory test finding 06/21/2012 Vitamin D, 25 Oh 36.2 ng/mL 30.0- 100.0 30, 31 Iron/Tibc,%Sat Group 06/21/2012 Iron 68 g/dL 46-155 30 Total Iron Binding Cap. 231 g/dL Low 250-450 30 % Iron Saturation 29.4 % 13.0-45.0 30 Comprehensive Metabolic Prof 06/21/2012 Albumin 3.8 g/dL 3.8-5.5 Alk. Phos. 62 U/L 22-95 Alt (SGPT) 19 U/L 10-40 Ast (Sgot) 20 U/L 5-34 BUN 8 mg/dL 6-26 Calcium 9.4 mg/dL 8.6-10.2 Chloride 102 mEq/L 94-112 Creatinine 0.7 mg/dL 0.6-1.4 Carbon Dioxide 26 mEq/L 21-32 Glucose 97 mg/dL 70-105 Sodium 139 mEq/L 134-149 Total Bilirubin 0.5 mg/dL 0.2-1.3 Total Protein 6.1 g/dL Low 6.3-8.1 32 Potassium 4.1 mEq/L 3.6-5.5 Globulin 2.3 g/dL 2.0-4.8 A/G Ratio 1.6 Calc 0.6-2.2 BUN/Creat Ratio 10.6 Calc 8.0-36.0 Lipid Profile 06/21/2012 Cholesterol 162 mg/dL 120-200 HDL 44 mg/dL 30-70 Triglycerides 87 mg/dL 30-200 HDL Risk Factor 3.7 CALC 0.0-4.4 LDL (Calculated) 101 CALC 0-129 VLDL (Calculated) 17 mg/dL 0-50 Laboratory test finding 06/21/2012 Ferritin 253 ng/mL 22-415 33 CBC Electronic (a) 06/21/2012 WBC 4.5 3.6-9.6 RBC 4.92 3.90-5.70 Hemoglobin (Fma/CMC/CTX) 14.6 g/dL 12.1 - 17.2 Hematocrit (Fma/CMC/CTX) 43.0 % 36.1 - 50.3 Platelets 173 10^3/ul 150-400 Lymph% 22.9 20.5-51.1 Mixed% 7.7 Neutrophils % 69.4 Mean Corpuscular Vol 87 82.2-97.4 Mean Corpuscular Hemoglobin 29.7 27.6-33.3 Mean Corpuscular Hemo Concen 33.9 32.0-36.0 RDW 12.8 11.6-13.7 Mean Platelet Volume 7.2 6.5-11.0 Laboratory test finding 06/14/2012 PSA Diagnostic 0.01 NG/ML 0-4.0 34 CBC Auto Diff 02/24/2012 White Blood Count 8.2 CUMM 4.8-10.8 35 Red Cell Count 5.35 CUMM 4.6-6.2 35 Hemoglobin 16.0 g/dL 14.0-18.0 35 Hematocrit 46 % 42-52 35 Mean Corpuscular Volume 86 um3 80-94 35 Mean Corpuscular Hemoglob 30 pg 27-31 35 Mean Corpuscular HGB [facility] 35 g/dL 32-36 35 Redcell Distribution WDTH 14 % 10.5-15 35 Platelet Count 198 CUMM 150-450 35 Mean Platelet Volume 8.5 um3 7.4-10.4 35 Gran % 72.2 % 38-83 35 Lymph % 16.9 % Low 20-45 35 Mononuclear % 9.7 % High 1-9 35 Eosinophil % 0.7 % 0-6 35 Basophil % 0.5 % 0-2 35 Abs Lymphs 1.4 1.0-4.8 35 Abs Mononuclear 0.8 0-0.8 35 Absolute Neutrophil Count 5.9 1.5-7.7 35 Abs Eosinophils 0.1 0-0.6 35 Abs Basophils 0 0-0.2 35 Comp Metabolic Panel 02/24/2012 Sodium 135 mmol/L 135-145 35 Potassium 4.1 mmol/L 3.5-5.0 35 Chloride 103 mmol/L 101-111 35 Co2 (Carbon Dioxide) 27.0 mmol/L 22-32 35 Anion Gap 5.0 mmol/L 2-11 35, 36 Glucose 81 mg/dL 70-100 35 BUN 12 mg/dL 6-24 35 Creatinine 0.8 mg/dL 0.50-1.40 35 One Over Creatinine 1.25 35 BUN/Creatinine Ratio 15.0 8-20 35 Calcium 9.4 mg/dL 8.1-9.9 35 Total Protein 6.7 GM/DL 6.2-8.1 35 Albumin 3.8 GM/DL 3.2-5.2 35 Globulin 2.9 GM/DL 2-4 35 Albumin/Globulin Ratio 1.3 1-3 35 Bilirubin Total 1.0 mg/dL 0.4-1.5 35, 37 Alkaline Phosphatase 54 U/L 39-117 35 Alt (SGPT) 38 U/L 17-63 35 Ast (Sgot) 28 U/L 12-42 35 eGFR Non- 97.6 > 60 35 eGFR 125.6 > 60 35, 38 Type And Screen 02/24/2012 Patient Blood Type O POSITIVE 35 Antibody Screen NEGATIVE 35 Specimen Discard Date 03/09/12 35, 39 Laboratory test finding 09/16/2011 Creatine Kinase 94 U/L 38-174 Laboratory test finding 09/10/2011 Vitamin B12 275 pg/mL 180-914 Vitamin D, 25 Hydroxy 09/10/2011 25-Hydroxy Vitamin D2 <4.0 ng/mL () 25-Hydroxy Vitamin D3 26 ng/mL () 25-Hydroxy Vitamin D Total 26 ng/mL () 40 Culture And Sensitivity 03/11/2011 Gram Stain Smear MOD GRAM POSITIV 41 <SEE NOTE> Gram Stain Smear 03/11/2011 Culture Sensitivity METH RESIST S. A 42 Culture/Sensitivity <SEE NOTE> Sensitivities Wound 03/11/2011 Clindamycin <=0.25 Culture Ciprofloxacin <=0.5 Erythromycin >=8 Gentamicin <=0.5 Levofloxacin 0.25 Linezolid 2 Oxacillin >=4 Rifampin <=0.5 Trimeth-Sulfa <=10 Tetracycline <=1 Tigecycline <=0.12 Vancomycin 1 Surgical Pathology 11/10/2010 Surgical <SEE 43 Pathology NOTE> Laboratory test 11/10/2010 Clotest NEGATIVE finding Comprehensive 10/27/2010 Albumin 4.3 g/dL 3.8-5.5 Metabolic Prof Alk. Phos. 66 U/L 22-95 Alt (SGPT) 31 U/L 10-40 Ast (Sgot) 27 U/L 5-34 BUN 15 mg/dL 6-26 Calcium 9.8 mg/dL 8.6-10.2 Chloride 103 mEq/L 94-112 Creatinine 1.1 mg/dL 0.6-1.4 Carbon Dioxide 25 mEq/L 21-32 Glucose 106 mg/dL High 70-105 44 Sodium 143 mEq/L 134-149 Total Bilirubin 0.2 mg/dL 0.2-1.3 Total Protein 7.0 g/dL 6.3-8.1 Potassium 4.4 mEq/L 3.6-5.5 Globulin 2.6 g/dL 2.0-4.8 A/G Ratio 1.6 Calc 0.6-2.2 BUN/Creat Ratio 14.0 Calc 8.0-36.0 Laboratory test finding 10/27/2010 Magnesium 2.0 mEq/L 1.2-2.1 TSH 0.78 mIU/L 0.50-6.00 Ferritin 143 ng/mL 22-415 Troponin < 0.06 ng/ml Low 0.00-2.30 45 Iron/Tibc,%Sat Group 10/27/2010 Iron 42 g/dL Low 46-155 46 Total Iron Binding Cap. 280 g/dL 250-450 46 % Iron Saturation 15.0 % 13.0-45.0 46 CBC Auto Diff 10/20/2010 White Blood Count 7.3 CUMM 4.8-10.8 Red Cell Count 5.36 CUMM 4.6-6.2 Hemoglobin 15.6 g/dL 14.0-18.0 Hematocrit 46 % 42-52 Mean Corpuscular Volume 86 um3 80-94 Mean Corpuscular Hemoglob 29 pg 27-31 Mean Corpuscular HGB Cone 34 g/dL 32-36 Redcell Distribution WDTH 14 % 10.5-15 Platelet Count 216 CUMM 150-450 Mean Platelet Volume 8.7 um3 7.4-10.4 47 Manual Differential 10/20/2010 Polysegmented Neutrophil 77 % 38-83 Lymphocyte 10 % Low 25-47 Monocyte 9 % 0-13 Eosinophil 2 % 0-6 Atypical Lymph 2 % 0-6 Absolute Neutrophil Count 5.6 RBC Morphology NORMAL Comp Metabolic Panel 10/20/2010 Sodium 138 mmol/L 135-145 Potassium 4.3 mmol/L 3.5-5.0 Chloride 103 mmol/L 101-111 Co2 (Carbon Dioxide) 28.0 mmol/L 22-32 Anion Gap 7.0 mmol/L 2-11 48 Glucose 104 mg/dL High 70-100 BUN 9 mg/dL 6-24 Creatinine 0.90 mg/dL 0.50-1.40 One Over Creatinine 1.10 BUN/Creatinine Ratio 10.0 8-20 Calcium 9.3 mg/dL 8.1-9.9 Total Protein 6.5 GM/DL 6.2-8.1 Albumin 3.8 GM/DL 3.2-5.2 Globulin 2.7 GM/DL 2-4 Albumin/Globulin Ratio 1.4 1-3 Bilirubin Total 0.7 mg/dL 0.4-1.5 49 Alkaline Phosphatase 59 U/L 39-117 Alt (SGPT) 31 U/L 17-63 Ast (Sgot) 22 U/L 12-42 eGFR Non- 85.5 > 60 eGFR 110.0 > 60 50 Iron & Iron Binding Capacity 10/20/2010 Iron Total 63 g/dL 45-182 Unsaturated Iron Binding 233 g/dL Total Iron Binding Capacity 296 g/dL 250-450 % Iron Saturation 21 % 15-55 Laboratory test finding 10/20/2010 Ferritin 157 NG/ML 24-336 Vitamin B12 170 pg/mL Low 180-914 Folic Acid 9.8 NG/ML 2-16 TSH 0.53 MIU/ML 0.34-5.60 Cortisol 8.6 g/dL 51 Vitamin D, 25 Hydroxy 10/20/2010 25-Hydroxy Vitamin D2 <4.0 ng/mL () 25-Hydroxy Vitamin D3 15 ng/mL () 25-Hydroxy Vitamin D Total 15 ng/mL () 52 Laboratory test finding 10/20/2010 Vitamin B1 Whole Blood 110 nmol/L 80- 150 53 Vitamin E 11.8 mg/L 5.5-17.0 54 Comprehensive Metabolic Prof 10/06/2010 Albumin 4.2 g/dL 3.8-5.5 Alk. Phos. 57 U/L 22-95 Alt (SGPT) 29 U/L 10-40 Ast (Sgot) 20 U/L 5-34 BUN 16 mg/dL 6-26 Calcium 9.3 mg/dL 8.6-10.2 Chloride 99 mEq/L 94-112 Creatinine 0.9 mg/dL 0.6-1.4 Carbon Dioxide 28 mEq/L 21-32 Glucose 96 mg/dL 70-105 Sodium 139 mEq/L 134-149 Total Bilirubin 0.4 mg/dL 0.2-1.3 Total Protein 7.0 g/dL 6.3-8.1 Potassium 4.9 mEq/L 3.6-5.5 Globulin 2.8 g/dL 2.0-4.8 A/G Ratio 1.5 Calc 0.6-2.2 BUN/Creat Ratio 17.9 Calc 8.0-36.0 Lipid Profile 10/06/2010 Cholesterol 177 mg/dL 120-200 HDL 50 mg/dL 30-70 Triglycerides 104 mg/dL 30-200 HDL Risk Factor 3.5 CALC 0.0-4.0 LDL (Calculated) 106 CALC 0-129 VLDL (Calculated) 21 mg/dL 0-50 Laboratory test finding 09/22/2010 PSA,Diagnostic 0.00 NG/ML 0-4 55 Comprehensive Metabolic Prof 10/14/2009 Albumin 4.4 g/dL 3.8-5.5 Alk. Phos. 66 U/L 22-95 Alt (SGPT) 40 U/L 10-40 Ast (Sgot) 26 U/L 5-34 BUN 13 mg/dL 6-26 Calcium 9.5 mg/dL 8.6-10.2 Chloride 98 mEq/L 94-112 Creatinine 1.0 mg/dL 0.6-1.4 Carbon Dioxide 27 mEq/L 21-32 Glucose 115 mg/dL High 70-105 56 Sodium 138 mEq/L 134-149 Total Bilirubin 0.6 mg/dL 0.2-1.3 Total Protein 6.8 g/dL 6.3-8.1 Potassium 4.7 mEq/L 3.6-5.5 Globulin 2.4 g/dL 2.0-4.8 A/G Ratio 1.8 Calc 0.6-2.2 BUN/Creat Ratio 13.5 Calc 8.0-36.0 Lipid Profile 10/14/2009 Cholesterol 179 mg/dL 120-200 HDL 52 mg/dL 30-70 Triglycerides 136 mg/dL 30-200 HDL Risk Factor 3.4 CALC Low 4.2-7.0 LDL (Calculated) 100 CALC 0-129 VLDL (Calculated) 27 mg/dL 0-50 Comprehensive Metabolic Prof 04/16/2009 Albumin 4.1 g/dL 3.8-5.5 57 Alk. Phos. 65 U/L 22-95 57 Alt (SGPT) 47 U/L High 10-40 57, 58 Ast (Sgot) 26 U/L 5-34 57 BUN 13 mg/dL 6-26 57 Calcium 9.1 mg/dL 8.6-10.2 57 Chloride 100 mEq/L 94-112 57 Creatinine 0.9 mg/dL 0.6-1.4 57 Carbon Dioxide 29 mEq/L 21-32 57 Glucose 107 mg/dL High 70-105 57 Sodium 145 mEq/L 134-149 57 Total Bilirubin 0.5 mg/dL 0.2-1.3 57 Total Protein 6.8 g/dL 6.3-8.1 57 Potassium 5.3 mEq/L 3.6-5.5 57 Globulin 2.6 g/dL 2.0-4.8 57 A/G Ratio 1.6 Calc 0.6-2.2 57 BUN/Creat Ratio 14.6 Calc 8.0-36.0 57 Lipid Profile 04/16/2009 Cholesterol 192 mg/dL 120-200 57 HDL 48 mg/dL 30-70 57 Triglycerides 135 mg/dL 30-200 57 HDL Risk Factor 4.0 CALC Low 4.2-7.0 57 LDL (Calculated) 116 CALC 0-129 57 VLDL (Calculated) 27 mg/dL 0-50 57 Comprehensive Metabolic Prof 08/02/2007 Albumin 4.2 g/dL 3.8-5.5 57 Alk. Phos. 71 U/L -95 57 Alt (SGPT) 38 U/L 10-40 57 Ast (Sgot) 25 U/L 5-34 57 BUN 18 mg/dL 6-26 57 Calcium 10.2 mg/dL 8.6-10.2 57 Chloride 102 mEq/L 94-112 57 Creatinine 1.2 mg/dL 0.6-1.4 57 Carbon Dioxide 26 mEq/L 21-32 57 Glucose 89 mg/dL 70-105 57 Sodium 138 mEq/L 134-149 57 Total Bilirubin 0.5 mg/dL 0.2-1.3 57 Total Protein 7.3 g/dL 6.3-8.1 57 Potassium 4.5 mEq/L 3.6-5.5 57 Globulin 3.2 g/dL 2.0-4.8 57 A/G Ratio 1.3 Calc 0.6-2.2 57 BUN/Creat Ratio 15.6 Calc 8.0-36.0 57 Lipid Profile 08/02/2007 Cholesterol 245 mg/dL High 120-200 57 HDL 58 mg/dL 30-70 57 Triglycerides 106 mg/dL 30-200 57 HDL Risk Factor 4.2 CALC 4.2-7.0 57 LDL (Calculated) 165 CALC High 0-129 57 VLDL (Calculated) 21 mg/dL 0-50 57 Laboratory test finding 08/02/2007 Creatine Kinase 121 U/L 38-174 57 PSA < 0.05 ng/mL Low 0.00-4.00 57, 59 Laboratory test 08/02/2007 Sed Rate ([facility]) 7 MM finding Laboratory test 01/05/2007 Misc UA;CBC;CMP; See Image finding eGFR Report Comp Metabolic-ALL 06/29/2006 Glucose, Serum 94 mg/dL 70-105 Lab Compani ([facility]) BUN ([facility]) 15 mg/dL 6-26 Creatinine ([facility]) 1.0 mg/dL 0.6-1.4 Sodium 139 134-149 Potassium 4.5 3.6-5.5 Chloride 100 mEq/L 94-112 Co2 29 21-32 Albumin ([facility]) 3.9 3.8-5.5 Total Protein 7.0 g/dL 6.3-8.1 Calcium ([facility]) 9.2 mg/dL 8.6-10.2 Alkaline Phosphatase (F/C/CTX) 81 U/L 30-110 Ast (Sgot) ([facility]) 16 U/mL 5-34 Alt (SGPT) ([facility]) 28 10-40 Bilirubin, Total 0.5 mg/dL 0.2-1.3 #GFR, Calculated (CTX) - Lipid Panel-ALL Lab 06/29/2006 Cholesterol ([facility]) 184 mg/dL 120-200 Companies HDL-Chol 47 mg/dL 30-85 Triglyceride 124 mg/dL 30-200 LDL/HDL Chol. Ratio (F/C/CTX) - Chol./HDL Ratio ([facility]) - Low 30-85 LDL, Calculated ([facility]) 112 mg/dL 0-129 HDL Risk Factor (a) 3.9 CALC Low 4.2-7.0 Laboratory test finding 06/29/2006 PSA ([facility]) <0.05 0.0-4.0 Comp Metabolic ([facility]) 08/17/2005 Glucose, Serum 113 mg/dL High 70-105 Male ([facility]/CTX) BUN ([facility]) 15 mg/dL 6-26 Creatinine ([facility]/CTX) 0.9 mg/dL 0.6-1.4 BUN/Creatinin Ratio 16.6 8.0-36 Sodium 142 134-149 Potassium 4.9 3.6-5.5 Chloride 102 mEq/L 94-112 Co2 26 21-32 Calcium ([facility]) 9.4 mg/dL 8.6-10.2 Total Protein 6.6 g/dL 6.3-8.1 Albumin ([facility]) 4.1 3.8-5.5 Globulin 2.5 2.0-4.8 A/G Ratio ([facility]) 1.6 0.6-2.2 Alk Phos ([facility]) Male 79 U/L 22-95 Alt-M SGPT Male ([facility]) 29 10-40 Ast Sgot 20 U/L 5-34 Bilirubin, Total 0.6 mg/dL 0.2-1.3 Lipid Profile([facility]) Male 08/17/2005 Cholesterol 174 mg/dL 120-200 Triglyceride 100 mg/dL 30-200 HDL Cholesterol ([facility]) Male 43 mg/dL 30-70 LDL, Calculated ([facility]) 111 CALC 0-129 LDL Direct (/[facility]) - mg/dL 0-130 VLDL 20 0-50 HDL Risk Factor (a) 4.0 CALC Low 4.2-7.0 Electrolyte Panel ([facility]) 08/12/2004 Sodium 136 mmol/L 135-145 Potassium 4.5 mmol/L 3.5-5.0 Chloride 104 mmol/L 101-111 Co2 25.0 mmol/L 22-32 Anion Gap 7.0 mmol/L 2-11 Glucose, Serum ([facility]/CTX) 105 mg/dL 70-105 BUN (a/[facility]) 15 mg/dL 6-24 Creatinine (a/[facility]/CTX) 0.9 mg/dL 0.5-1.4 CBC Electronic ([facility]) 08/12/2004 WBC 5.4 CUMM 4.8-10.8 RBC 4.94 CUMM 4.6-6.2 Hemoglobin (a/[facility]) 14.5 g/dL 14.0-18.0 Hematocrit (a/[facility]/CTX) 42 % 42-52 Mean Corpuscular Vol 86 UM3 80-94 Mean Corpuscular Hemaglobin 29 pg 27-31 Mean Corpuscular Hemo Concen 34 g/dL 32-36 RDW 13 10.5-15 Platelets 277 CUMM 150-450 Mean Platelet Volume 7.4 7.4-10.4 Granulocytes 73.7 % 38-83 Lymphocytes 13.4 % Low 20-45 Monocytes 11.4 % High 1-9 Eosinophil 0.9 0-6 Basophil% 0.6 0-2 Abs Lymphs 0.7 Low 1.0-4.8 Abs Mononuclear 0.6 0-0.8 Abs Grans 4.0 1.5-7.7 Abs Eosinophils 0.1 0-0.6 Abs Basophils 0 0-0.2 Lipid Profile([facility]) Male 08/05/2004 Cholesterol 170 mg/dL 120-200 Triglyceride 93 mg/dL 30-200 HDL Cholesterol ([facility]) Male 45 mg/dL 30-70 LDL, Calculated ([facility]) 106 CALC 0-129 LDL, Direct - mg/dL 0-130 VLDL 19 0-50 HDL Risk Factor ([facility]) 3.8 CALC Low 4.2-7.0 Laboratory test finding 08/05/2004 PSA <0.05 0.0-4.0 CBC Electronic ([facility]) 08/05/2004 WBC 5.2 3.6-9.6 Lymphocytes 21.0 % 20.5 - 51.1 Monocytes 5.2 % 1.7-9.3 Granulocytes 73.8 % 42.2 - 75.2 Lymphocytes 1.1 10^3/uL 0.7 - 4.9 Monocytes 0.3 10^3/uL 0.1 - 0.9 Granulocytes 3.8 10^3/uL 1.5 - 7.2 RBC 5.26 3.90-5.70 Hemoglobin ([facility]) 15.6 g/dL 12.1 - 17.2 Hematocrit ([facility]) 46.0 % 36.1 - 50.3 Mean Corpuscular Vol 87.4 82.2-97.4 Mean Corpuscular Hemaglobin 29.6 27.6-33.3 Mean Corpuscular Hemo Concen 33.8 33.0-35.5 RDW 13.1 11.6-13.7 Platelets 272. 10^3/ul 150-400 Mean Platelet Volume 6.8 Low 7.4-10.4 Comp Metabolic (a) Male 08/05/2004 Glucose, Serum ([facility]) 114 mg/dL 70-118 BUN ([facility]) 15 mg/dL 6-26 Creatinine ([facility]) 1.0 mg/dL 0.6-1.4 BUN/Creatinin Ratio 15.3 8.0-36 Sodium 146 134-149 Potassium 5.0 3.6-5.5 Chloride 104 mEq/L 94-112 Co2 27 21-32 Calcium ([facility]) 9.6 mg/dL 8.6-10.2 Total Protein 7.5 g/dL 6.3-8.1 Albumin ([facility]) 4.5 3.8-5.5 Globulin 3.0 2.0-4.8 A/G Ratio ([facility]) 1.5 0.6-2.2 Alk Phos (a) Male 75 U/L 22-95 Alt (SGPT) 33 10-40 Ast (Sgot) (a/[facility]) 22 U/mL 5-34 Total Bilirubin 0.7 Electrolyte Panel ([facility]) 10/02/2003 Sodium 134 mmol/L Low 135-145 Potassium 4.0 mmol/L 3.5-5.0 Chloride 101 mmol/L 101-111 Co2 27.0 mmol/L 22-32 Anion Gap 6.0 mmol/L 2-11 Glucose, Serum ([facility]) 95 mg/dL 70-105 BUN ([facility]) 13 mg/dL 6-24 Creatinine ([facility]) 0.9 mg/dL 0.5-1.4 Laboratory test finding 10/02/2003 PSA 3.5 0-4 PT/Inr ([facility]) 10/02/2003 PT--Therapy 11.4 SEC 10.7-13.1 ([facility]) Inr 0.90 60 Laboratory test finding 10/02/2003 Aptt 28.3 SEC 20.6-31.5 CBC Electronic ([facility]) 10/02/2003 WBC 6.7 CUMM 4.8-10.8 RBC 5.19 CUMM 4.6-6.2 Hemoglobin ([facility]) 15.3 g/dL 14.0-18.0 Hematocrit ([facility]) 44 % 42-52 Mean Corpuscular Vol 85 UM3 80-94 Mean Corpuscular Hemaglobin 29 pg 27-31 Mean Corpuscular Hemo Concen 35 g/dL 32-36 RDW 13 10.5-15 Platelets 253 CUMM 150-450 Mean Platelet Volume 7.0 Low 7.4-10.4 Granulocytes 61.6 % 38-83 Lymphocytes 27.0 % 20-45 Monocytes 9.6 % High 1-9 Eosinophil 1.2 0-6 Basophil% 0.6 0-2 Abs Lymphs 1.8 1.0-4.8 Abs Mononuclear 0.6 0-0.8 Abs Grans 4.2 1.5-7.7 Abs Eosinophils 0.1 0-0.6 Abs Basophils 0 0-0.2 Type And Cross 10/02/2003 Patient Abo, RH O PS Antibody Screen NEGATIVE Negative Xmatch, I.S. SEE DETAIL 61 #Ordered Units - Release Date - Spec Discarded On 10/16/03 Comp Metabolic ([facility]) 08/14/2003 Glucose, Serum ([facility]) 104 mg/dL 70 -118 BUN ([facility]) 16 mg/dL 6-26 Creatinine ([facility]) 0.8 mg/dL 0.6-1.4 BUN/Creatinin Ratio 19.4 8.0-36 Sodium 140 134-149 Potassium 4.7 3.6-5.5 Chloride 102 mEq/L 94-112 Co2 25 21-32 Calcium ([facility]) 10.0 mg/dL 8.6-10.0 Total Protein 7.3 g/dL 6.3-8.1 Albumin ([facility]) 4.5 3.8-5.5 Globulin 2.8 2.0-4.8 A/G Ratio ([facility]) 1.6 0.6-2.2 Alkaline Phosphatase (F/C/CTX) 61 U/L 22-95 Alt (SGPT) 26 10-40 Ast (Sgot) ([facility]) 17 U/mL 5-34 Bilirubin, Total 0.5 mg/dL 0.2-1.3 Lipid Profile ([facility]) 08/14/2003 Cholesterol 162 mg/dL 120-200 Triglyceride 82 mg/dL 30-200 HDL-Chol 40 30-70 LDL-Calculated ([facility]) 106 CALC 0-129 VLDL 16 0-50 HDL Risk Factor ([facility]) 4.1 CALC Low 4.2-7.0 Laboratory test finding 08/14/2003 PSA 0.57 0.0-4.0 Liver Function ([facility]) 10/17/2002 Total Protein 7.0 g/dL 6.3-8.1 Albumin ([facility]) 4.3 3.8-5.5 A/G Ratio ([facility]) 1.6 0.6-2.2 Globulin 2.7 2.0-4.8 Alkaline Phosphatase 77 U/L 22-95 Alt (SGPT) 34 10-40 Ast (Sgot) ([facility]) 22 U/mL 5-34 Bilirubin, Total 0.4 mg/dL 0.2-1.3 Bilirubin, Direct 0.2 mg/dL 0-0.6 Bilirubin, Indirect 0.23 ml/dl 0.10-1.0 Lipid Profile ([facility]) 10/17/2002 Cholesterol 193 mg/dL 120-200 Triglyceride 135 mg/dL 30-200 HDL-Chol 39 30-70 LDL-Calculated ([facility]) 127 CALC 0-129 VLDL 27 0-50 HDL Risk Factor ([facility]) 4.9 CALC 4.2-7.0 Lipid Profile ([facility]) 07/27/2002 Cholesterol 256 mg/dL High 120-200 Triglyceride 358 mg/dL High 30-200 VLDL NOT INCLUDED 0-50 LDL-Calculated INVALID 0-129 HDL-Chol 46 30-70 Laboratory test finding 07/27/2002 LDL, Direct 203 mg/dL High 5-129 Comments HDL RISK 5.6 4.2-7.0 Basic Metabolic (a) 07/27/2002 BUN 16 6-20 Calcium 9.5 mg/dL 8.6-10.0 Creatinine 0.8 mg/dL 0.6-1.4 Glucose 103 mg/dL 70-105 Sodium 141 134-149 Potassium 5.0 3.6-5.5 Chloride 98 mEq/L 94-112 Co2 29 21-32 Ua - Non Micro ([facility]) 06/28/2002 Appearance CLEAR YELLOW Glucose NEGATIVE Bilirubin NEGATIVE Ketones NEGATIVE SP Grav 1.010 Blood NEGATIVE PH 7.0 Protein NEGATIVE Urobil 0.2 Nitrite NEGATIVE Leukocytes NEGATIVE Ua - Micro ([facility]) 06/17/2002 Appearance CLOUDY YELLOW Glucose NEGATIVE Bilirubin NEGATIVE Ketones NEGATIVE SP Grav 1.025 Blood TRACE-INTACT PH 5.5 Protein NEGATIVE Urobil 1.0 Nitrite NEGATIVE Leukocytes NEGATIVE Hyaline - /Lpf Granular - /Lpf WBC'S - RBC'S 3-5 Mucus - /Lpf Epith RARE Bacteria - Amorphous - /Lpf Crystals RARE /Lpf Comments - Lipid Profile ([facility]) 01/06/2002 Cholesterol 245 mg/dL High 140-200 Triglyceride 152 mg/dL High 30-150 VLDL 30 0-50 LDL-Calculated 174 High 0-160 HDL-Chol 41 30-70 Ua - Micro ([facility]) 09/12/2001 Appearance CLEAR/YELLOW Glucose NEG Bilirubin NEG Ketones 15 SP Grav 1.015 Blood NEG PH 6.5 Protein NEG Urobil 1.0 Nitrite NEG Leukocytes NEG Hyaline - /Lpf Granular - /Lpf WBC'S 0-1 RBC'S 1-3 Mucus SM AMT /Lpf Epith - Bacteria - Amorphous - /Lpf Crystals - /Lpf Comments - Lipid Profile ([facility]) 09/12/2001 Cholesterol 228 mg/dL High 140-200 Triglyceride 88 mg/dL 30-150 VLDL 18 0-50 LDL-Calculated 132 0-160 HDL-Chol 78 High 30-70 CBC With Manual Dif ([facility]) 09/12/2001 WBC 13.9 High 3.6-9.6 RBC 5.55 3.90-5.70 Hemoglobin 16.1 g/dL 12.1 - 17.2 Hematocrit 48.6 % 36.1 - 50.3 Mean Corpuscular Vol 87.6 82.2-97.4 Mean Corpuscular Hemaglobin 29.1 27.6-33.3 Mean Corpuscular Hemo Concen 33.2 33.0-34.8 RDW 13.2 11.6-13.7 Platelets 279 10^3/ul 150-400 Mean Platelet Volume 7.1 Low 7.4-10.4 Neutrophils 63 Band 6 Lymph From [facility] 10 Monocytes 1 % Low 1.7-9.3 Eosinophils - Basophils - Metamyelocytes - Myelocytes - Promyelocyte - Blast - Atypical Lymph 20 NRBC - Morphology - Comments - Laboratory test finding 09/12/2001 Reflexive Monospot NEG Lipid Profile (a) 07/29/2001 Cholesterol 258 mg/dL High 140-200 Triglyceride 165 mg/dL High 30-150 VLDL 33 0-50 LDL-Calculated 166 High 0-160 HDL-Chol 59 35-85 Laboratory test finding 04/20/2001 PSA 2.3 ng/ml 0 - 4 62 Comp Metabolic (a) 04/20/2001 Albumin 4.4 3.8-5.5 Alkaline Phosphatase 53 U/L 36-117 Bilirubin, Total 0.6 mg/dL 0.2-1.3 BUN 14 7-26 Calcium 9.2 mg/dL 8.6-10.0 Creatinine 0.8 mg/dL 0.6-1.4 Glucose 103 mg/dL 70 - 118 Ast Sgot 23 U/L 9-44 Alt (SGPT) 36 10-40 Total Protein 7.3 g/dL 6.4-8.3 Sodium 140 134-149 Potassium 4.7 3.6-5.5 Chloride 100 mEq/L 94-112 Co2 26 21-32 Globulin 2.9 2.0-4.8 Albumin / Globulin Ratio 1.5 0.6-2.2 BUN/Creatinin Ratio 17.5 8.0-36 Lipid Profile (a) 04/20/2001 Cholesterol 281 mg/dL High 140-200 Triglyceride 137 mg/dL 30-150 VLDL 27 0-50 LDL-Calculated 205 High 0-160 HDL-Chol 49 35-85 CBC With Diff (a) 04/20/2001 WBC 6.4 3.6-9.6 Lymphocytes 31.8 % 20.5 - 51.1 Monocytes 8.6 % 1.7 - 9.3 Granulocytes 59.6 % 42.2 - 75.2 Lymphocytes 2.0 10^3/uL 0.7 - 4.9 Monocytes 0.6 10^3/uL 0.1 - 0.9 Granulocytes 3.8 10^3/uL 1.5 - 7.2 RBC 5.46 3.90-5.70 Hemoglobin 15.9 g/dL 12.1 - 17.2 Hematocrit 47.5 % 36.1 - 50.3 Mean Corpuscular Vol 87.1 82.2-97.4 Mean Corpuscular Hemaglobin 29.1 27.6-33.3 Mean Corpuscular Hemo Concen 33.4 31-36 RDW 12.8 11.6-13.7 Platelets 285 10^3/ul 150-400 Mean Platelet Volume 7.2 Low 7.4-10.4 Lipid Profile ([facility]) 05/31/2000 Cholesterol 227 mg/dL High 140-200 Triglyceride 208 mg/dL High 30-150 VLDL 42 mg/dL 0-50 LDL-Calculated 138 0-160 HDL-Chol 47 mg/dL 30-70 Laboratory test finding 02/12/2000 PSA 1.7 NG/ML 0-4 63 Ua - Non Micro ([facility]) 02/12/2000 Appearance YELLOW CLEAR Glucose - Bilirubin - Ketones - SP Grav 1.010 Blood - PH 6.5 Protein - Urobil 0.2 Nitrite - Leukocytes - CBC With Diff ([facility]) 02/12/2000 WBC 6.9 /Hpf 3.6 - 9.6 Lymphocytes 30.7 % 20.5 - 51.1 Monocytes 7.0 % 1.7 - 9.3 Granulocytes 62.3 % 42.2 - 75.2 Lymphocytes 2.1 10^3/uL 0.7 - 4.9 Monocytes 0.5 10^3/uL 0.1 - 0.9 Granulocytes 4.3 10^3/uL 1.5 - 7.2 RBC 5.40 /Hpf 3.90 - 5.70 Hemoglobin 16.0 g/dL 12.1 - 17.2 Hematocrit 47.5 % 36.1 - 50.3 Mean Corpuscular Vol 87.9 fl 82.2 - 97.4 Mean Corpuscular Hemaglobin 29.7 pg 27.6 - 33.3 Mean Corpuscular Hemo Concen 33.8 g/dL 33.0 - 34.8 RDW 12.8 % 11.6 - 13.7 Platelets 258 10^3/ul 150-400 Mean Platelet Volume 7.7 fl 7.4 - 10.4 Comp Metabolic ([facility]) 02/12/2000 Albumin 4.3 GM/DL 3.80 - 5.50 Alkaline Phosphatase 70 U/L 39-130 Bilirubin, Total 0.3 mg/dL 0.2-1.3 BUN 15 mg/dL 10-26 Calcium 8.7 mg/dL 7.4-9.2 Creatinine 1.1 mg/dL 0.6-1.4 Glucose 104 mg/dL 70 - 118 Ast Sgot 19 U/L 9-44 Alt (SGPT) 35 U/L 10-40 Total Protein 7.5 g/dL 6.3-8.1 Sodium 144 Potassium 4.8 mEq/L 3.6-5.5 Chloride 104 mEq/L 94-112 Co2 30 21-32 Globulin 3.2 2.0-4.8 Albumin / Globulin Ratio 1.3 0.6-2.2 BUN/Creatinin Ratio 13.6 8.0-36 Lipid Profile ([facility]) 02/12/2000 Cholesterol 276 mg/dL High 140-200 Triglyceride 192 mg/dL High 30-150 HDL-Chol 47.4 mg/dL 30-70 VLDL 38 mg/dL 0-50 LDL-Calculated 191 High 0-160 1 Serum levels of PSA measured using the [employer] DXI Hybritech immunoassay should not be interpreted [...] methods or kits cannot be used interchangeably. 2 Reference Range and Interpretation: TnI (ng/mL) Interpretation Less Than 0.03 ng/mL Not supportive of diagnosis of [place] 0.03 - 0.50 ng/mL Indeterminate: suggest serial studies if clinically indicated. Greater than 0.5 ng/mL Consistent with diagnosis of [place] 3 Acute inflammation: >10.00 4 Because ethnic data is not always readily [...] 15-29 5 Kidney failure <15 (or dialysis) 5 >100 to <200 pg/mL: likely compensated congestive heart failure (CHF) 200 to 400 pg/mL: likely moderate CHF >400 pg/mL: likely moderate to severe CHF [facility] 6 FASTING 7 FASTING 8 Normal Range 180 to 914 Indeterminate Range 145 to 180 Deficient Range <145 9 FASTING 10 Test Performed by: [place] [address] Manager Mining: Heide Cheema, Ph.D. 11 Test Performed by: [place] [address] Manager Mining: Heide Cheema, Ph.D. 12 Because ethnic data is not always readily [...] 15-29 5 Kidney failure <15 (or dialysis) 13 Serum levels of PSA measured using the [employer] DXI Hybritech immunoassay should not be interpreted [...] methods or kits cannot be used interchangeably. 14 Serum levels of PSA measured using the [employer] DXI Hybritech immunoassay should not be interpreted [...] methods or kits cannot be used interchangeably. 15 FASTING 16 FASTING 17 FASTING 18 Because ethnic data is not always readily [...] 15-29 5 Kidney failure <15 (or dialysis) 19 -- REFERENCE VALUE -- 25-HYDROXY D TOTAL (D2+D3) Optimum levels in the healthy population are 20-50, patients with bone disease may benefit from higher levels within this range. Test Performed by: [address] [address] Manager Mining: Sonny Yoo III, M.D. 20 Test Performed by: [address], [place] [address] Manager Mining: Heide Cheema, Ph.D. 21 Test Performed by: [place] [address] Manager Mining: Heide Cheema, Ph.D. 22 -- REFERENCE VALUE -- 25-HYDROXY D TOTAL (D2+D3) Optimum levels in the normal population are 25-80 Test Performed by: [address] [address] Manager Mining: Sonny Yoo III, M.D. 23 Because ethnic data is not always readily [...] 15-29 5 Kidney failure <15 (or dialysis) 24 FASTING 25 FASTING 26 FASTING 27 Test Performed by: [place] [address] Manager Mining: Heide Cheema, Ph.D. 28 Test Performed by: [place] [address] Manager Mining: Heide Cheema, Ph.D. 29 Serum levels of PSA measured using the [employer] DXI Hybritech immunoassay should not be interpreted [...] methods or kits cannot be used interchangeably. 30 FASTING; 1 sst 31 Vitamin D deficiency has been defined by the [place] of [employer] and an Endocrine Society practice guideline as a level of serum 25-OH vitamin D less than 20 ng/mL (1,2). The Endocrine Society went on to further define vitamin D insufficiency as a level between 21 and 29 ng/mL (2). 1. IOM ([place] [employer]). 2010. Dietary reference intakes for calcium and D. [place]: The National Academies Press. 2. Farzaneh MF, Tiny MURRIETA, Angela STEPHENS, et al. Evaluation, treatment, and prevention of vitamin D deficiency: an Endocrine Society clinical practice guideline. JCEM. 2010; 96(7):1911-30. 32 results vianey'd 33 FASTING 34 Serum levels of PSA measured using the [employer] DXI Hybritech immunoassay should not be interpreted [...] methods or kits cannot be used interchangeably. 35 AA 03/09/07:45 36 Anion gap measurement may be of limited value in the presence of any alkalosis, especially in a combined acid base disorder. . 37 A metabolite of Naproxen, O-desmethylnaproxen, has been shown to interfere with the Jendrassik-Tasha method for measuring total bilirubin. Samples from patients who have taken Naproxen have shown spurious elevation in total bilirubin levels. 38 Because ethnic data is not always readily [...] 15-29 5 Kidney failure <15 (or dialysis) 39 PREADMISSION TESTING SAMPLES FOR BLOOD BANK WILL BE HELD FOR 14 DAYS FROM THE DATE OF COLLECTION *IF* THE FOLLOWING CRITERIA ARE MET: 1) THE PATIENT HAS *NOT* BEEN IN THE LAST 3 MONTHS. 2) THE PATIENT HAS *NOT* BEEN TRANSFUSED IN THE LAST 3 MONTHS. PREADMISSION TESTING SAMPLES WILL *NOT* BE HELD FOR 14 DAYS FROM PATIENTS WHO IN THE LAST 3 MONTHS: 1) HAVE BEEN 2) HAVE BEEN TRANSFUSED THESE PATIENTS *MUST* BE COLLECTED WITHIN 3 DAYS OF THE SURGERY DATE. 40 -- REFERENCE VALUE -- 25-HYDROXY D TOTAL (D2+D3) Optimum levels in the normal population are 25-80 Test Performed by: [facility] Dpt of Lab Med and Pathology [address] [place], [place] [id number] Manager Mining: Sonny Yoo III, M.D. 41 MOD GRAM POSITIVE COCCI IN CLUSTERS FEW 42 METH RESIST S. AUREUS (MRSA) MOD^MODERATE^QTY 43 ---- RUN DATE: 11/12/10 [facility] NMI LIVE PAGE 1 RUN TIME: 1356 Specimen Inquiry RUN USER: INTERFACE -- Name: IAN WAGNER Simone NORRIS Status: REG REF Re11/10/10 Age/Sex: 60/M Unit#: [id number] Location: END : 48 -- Specimen: [id number] SOUT Spec Date: 11/10/[address]: Danilo palomino MD Spec Type: SURGICAL P Received: 11/10/10-1052 Copies to: Nabor Candelario MD SPECIMEN BIOPSY GASTRIC BODY POLYPS HISTORY POST-OP DIAGNOSIS: Esophagus - normal, no erosions; stomach - multiple sm all (approximately 3-5 mm.) funndal and body polyps, otherwise normal; tod l duodenum CLINICAL INFORMATION: Pre-op for bariatric surgery; obesity GROSS DESCRIPTION The specimen is received in formalin labelled Ian Wagner ., Biopsy Gastric Body Polyps, and consists of multiple dupont soft tissue fragments measuring 0.5 x 0.3 x 0.2 cm. Submitted entirely, one cassette. DIAGNOSIS Stomach, body, biopsies: A. Partially denuded oxyntic gland mucosa with mild chronic active gastritis. B. No Helicobacter pylori-like organisms identified. COMMENT A Helicobacter pylori stain was performed with appropriate controls and is negative. Signed Electronically by: PIYUSH JANG MD 11/12/10 1355 -- -- DEPARTMENT OF PATHOLOGY, [address] [place] [address] [facility] Permit #[id number] Piyush Jang M.D. Director Ryder Root M.D. Cardiology Specialist Dir karin -- 44 RESULT VIANEY'D 45 RESULT VIANEY'D 46 1 SST TUBE 47 Lymphopenia % 48 Anion gap measurement may be of limited value in the presence of any alkalosis, especially in a combined acid base disorder. . 49 A metabolite of Naproxen, O-desmethylnaproxen, has been shown to interfere with the Jendrassik-Tasha method for measuring total bilirubin. Samples from patients who have taken Naproxen have shown spurious elevation in total bilirubin levels. 50 Because ethnic data is not always readily [...] 15-29 5 Kidney failure <15 (or dialysis) 51 REFERENCE RANGE: AM 8.7-22.4 PM LESS THAN 10 . 52 Interpretation: 10-24 (mild to moderate deficiency) -- REFERENCE VALUE -- 25-HYDROXY D TOTAL (D2+D3) Optimum levels in the normal population are 25-80 Test Performed by: [facility] Dpt of Lab Med and Pathology [address] [place] [address] Manager Mining: Sonny Yoo III, M.D. 53 Test Performed by: [facility] Dpt of Lab Med and Pathology [address] [place] [address] Manager Mining: Sonny Yoo III, M.D. 54 Test Performed by: [place] [address] Manager Mining: Heide Cheema, Ph.D. 55 * SERUM LEVELS OF PSA MEASURED USING THE [employer] ACCESS HYBRITECH IMMUNOASSAY SHOULD NOT BE INTERPRETED ABSOLUTE EVIDENCE OF THE PRESENCE OR ABSENCE OF DISEASE. THE PSA VALUE SHOULD BE USED IN CONJUNCTION WITH OTHER PERTINENT CLINICAL DIAGNOSTIC PROCEDURES. A PSA value in the range of 0.1 to 0.6 ng/ml is indeterminate if being used as an indicator of recurrent or residual disease. . 56 RESULT VIANEY'D 57 FASTING 58 result reckd' 59 RESULT RECHECKED 60 RECOMMENDED INR FOR PATIENTS ON ORAL ANTICOAGULANTS PROPHYLAXIS: 2.0-3.0 TREATMENT OF THROMBOSIS 2.0-3.0 PREVENTION OF EMBOLISM 2.0-3.0 PREVENTION OF EMBOLISM FROM PROSTHETIC HEART VALVES 2.5-3.5 61 CROSSMATCH AUTOLOGOUS WB ARGETSINGERBB9 0 POS COMP? Y 62 . RESULTS OBTAINED USING [employer] MEIA METHODOLOGY. SERUM PSA RESULTS SHOULD BE USED ONLY IN CONJUNCTION WITH INFORMATION AVAILABLE FROM THE CLINICAL EVALUATION OF THE PATIENT AND OTHER DIAGNOSTIC PROCEDURES. 63 SERUM LEVELS OF PSA SHOULD NOT BE INTERPRETED ABSOLUTE EVIDENCE OF THE PRESENCE OR ABSENCE OF DISEASE. THE PSA VALUE SHOULD BE USED IN CONJUNCTION WITH OTHER PERTINENT CLINICAL DIAGNOSTIC PROCEDURES. Procedures Date CPT Code Description Status Comment 11/09/2016 Colonoscopy Completed 10/27/2010 50306 Electrocardiogram Complete Completed 04/22/2010 96523 Injection Subcutaneous Or Intramuscular Completed 04/22/2010 55451 Inject/Drain Joint/Bursa Major Completed 08/31/2006 64473 Electrocardiogram Complete Completed 07/19/[address] WHITE 02/12/2000 44633 Electrocardiogram Complete Completed Encounters Type Date Location Provider CPT E/M Dx Office Visit 11/23/2016 11:20a Main Office Will Candelario M.D. 28392 M54.5 Office Visit 08/28/2014 9:20a [facility] Will Candelario M.D. 09745 272.4 Office Visit 12/20/2012 8:00a [facility] Will Candelario M.D. 93740 272.4 Office Visit 09/13/2012 11:20a [facility] Will Candelario M.D. 52937 782.1 Office Visit 06/28/2012 9:10a [facility] Will Candelario M.D. 01482 401.9 V45.86 Office Visit 10/14/2011 9:40a Main Office Will Candelario M.D. 20444 366.9 401.9 427.9 v72.83 Office Visit 11/17/2010 9:10a [facility] Primitivo Miranda M.D. 71052 427.9 401.9 278.00 272.4 780.50 333.94 Office Visit 10/27/2010 3:20p [facility] Primitivo Miranda M.D. 66479 427.9 401.9 278.00 272.4 780.50 333.94 268.9 Office Visit 10/06/2010 9:40a [facility] Office Will Candelario M.D. 84543 401.9 272.0 995.3 Office Visit 07/24/2010 9:10a [facility] Master Murray M.D. 06562 465.9 009.0 401.9 Office Visit 04/22/2010 4:00p [facility] Will Candelario M.D. 83179 726.10 Office Visit 10/14/2009 9:00a [facility] Office Will Candelario M.D. 69181 272.0 401.9 278.00 Office Visit 04/16/2009 11:10a [facility] Will Candelario M.D. 03024 272.0 401.9 Office Visit 09/28/2008 10:30a [facility] Tamia Page 39357 461.0 M.DReece Office Visit 03/20/2008 1:20p [facility] Will Candelario M.D. 73325 366.9 V72.83 Office Visit 09/15/2007 2:10p [facility] Master Murray M.D. 60974 465.9 466.0 Office Visit 08/02/2007 11:00a [facility] Will Candelario M.D. 17589 401.9 272.0 724.5 239.5 Office Visit 01/04/2007 9:40a [facility] Will Candelario M.D. 51197 401.9 272.0 788.37 V72.83 Office Visit 08/31/2006 9:40a [facility] Will Candelario M.D. 86418 401.9 272.0 788.37 V72.83 Office Visit 06/29/2006 9:10a [facility] Will Candelario M.D. 95975 401.9 272.0 239.5 429.2 272.4 Office Visit 12/17/2005 9:20a [facility] Will Candelario M.D. 62799 401.9 272.0 Office Visit 08/17/2005 8:00a [facility] Office Will Candelario M.D. 64897 401.9 272.0 Office Visit 08/05/2004 9:20a [facility] Will Candelario M.D. 87844 239.5 429.2 Office Visit 08/14/2003 9:40a [facility] Will Candelario M.D. 12161 600.00 272.4 401.9 V71.1 Office Visit 10/17/2002 9:00a [facility] Will Candelario M.D. 90107 272.0 401.1 Office Visit 09/07/2002 9:10a [facility] Master Murray M.D. 09131 462 461.9 Office Visit 08/15/2002 9:10a [facility] Will Candelario M.D. 36999 272.0 401.1 Office Visit 06/28/2002 10:00a [facility] Jimmie Martin M.D. 39410 053.9 599.7 Office Visit 06/17/2002 10:50a Main Office Jimmie Martin M.D. 42963 053.9 599.7 Office Visit 01/06/2002 4:10p [facility] Office Will Candelario M.D. 65512 Office Visit 09/19/2001 11:00a [facility] Office Piyush Martin M.D. 32875 Office Visit 09/12/2001 10:10a [facility] Office iPyush Martin M.D. 94148 Office Visit 07/29/2001 9:20a [facility] Office Piyush Martin M.D. 96783 Office Visit 04/15/2001 1:40p [facility] Office Piyush Martin M.D. 17458 Office Visit 05/31/2000 9:00a [facility] Office Piyush Martin M.D. 57543 Office Visit 03/15/2000 9:00a [facility] Office Piyush Martin M.D. 63017 Plan of Care Future Appointment(s):01/18/2018 10:20 am - Will Candelario M.D. at [facility] Ewhkgb7908/20/2017 - Sis Dubois, NPB02.9 Zoster without complicationsComments:- Vaseline to areas multiple times if they open or crust over- Naproxen for pain control- Return to office for re-evaluation worsening of symptoms or if pain intolerableAllNew Medication:Valtrex 1 gm
--- OUTSIDE RECORDS SUMMARY | 2017-09-05 17:44 | XMS REPORT ---
:1950 External Reference #:[id number] Author Organization [facility] Address [address] [place] [address] Phone [phone] Care Team Providers Name Role Phone Will Candelario MD Care Team Information Ski Patrol Officer Unavailable Will Candelario MD Primary Care Physician Unavailable Payers Type Date Identification Numbers Payment Provider Subscriber Medicare Primary Effective: Policy Number: Medicare [place] Ian Wagner 2014 [id number] PayID: [id number] [address] [place] [address] Medigap Part B Effective: Policy Number: Rohan Garcia 2008 [id number] Expires: 2017 PayID: [id number] [address] Attn: [place] [address] Commercial Effective: Policy Number: Jose Wagner 2013 [id number] [facility] To [facility] PayID: [id number] [address] [place] [address] Problems Date Description Provider Status Onset: 12/20/2012 [...] CReece 2017 s by mouth Silvino, three SAFETY ASSOCIATE times daily for 1 week Lotrisone 09/13/ Active Cream 1-0.05% 30uni use on Sis C. 2012 ts skin twice Silvino, a day SAFETY ASSOCIATE Multi-Vitamin / Active Unknown With Iron 0000 [...] 06/28/ Hx Cream 2% 30gm apply thin Ojan 2012 - layer Sherry, 08/19/ twice a LIGHT INDUSTRIAL SUPERVISOR 2017 to affected area. Iron 11/03/ Hx Tablets 325(65Fe) 90tab 1 po qd Primitivo Gutierrez 2010 - mg s Ruth 10/13/ M.D. 2011 Lisinopril 10/27/ Hx Tablets 20mg 90tab Take One Langford ARecee 2010 - s Tablet By Ruth, 06/28/ Mouth Once M.D. 2011 Daily Wheelchair 10/06/ Hx 1unit for Will Bundy 2010 - s severe Breiman, 10/06/ arthritis M.D. 2010 Nasonex 09/15/ Hx Suspension 50mcg/Act 1unit 2 Will Bundy 2010 - s sprays/nos Breiman, 06/28/ tril/day M.D. 2011 Nasonex 09/15/ Hx Suspension 50mcg/Act 1unit Use 2 Will Bundy 2010 - s Sprays In [facility], 08/28/ Each M.D. 2015 Nostril Once Daily [...] 08/15/ Hx 0.5% 30gm apply bid Will Bnudy 2002 - Andree, 12/17/ M.D. 2006 Elavil 06/28/ Hx 10mg 50uni 1-2 PO QHS Jimmie Seymour 2001 - ts Mario, 10/17/ M.D. 2003 Valtrex 06/17/ Hx 500mg 42uni 2 Tabs tid Jimmie Seymour 2001 - ts X 7D [place], 06/24/ M.D. 2002 Calan SR 02/11/ Hx Tablets 240mg 90tab 1qd Will Bundy 1999 - s Andree, 04/24/ M.D. 2003 Dyazide 12/15/ Hx 37.5/25 30uni 1 PO qd Jimmie Seymour 1999 - ts [place], 08/14/ M.D. 2004 Augmentin 10/28/ Hx Piyush [...] 4.0 x10^3/UL 1.5-7.2 Lymph# 1.2 x10^3/UL 0.7-4.9 [place]# 0.4 x10^3/UL 0.1-0.9 Gran % 69.3 % 42.2-75.2 Lymph % 22.8 % 20.5-51.1 [place]% 7.9 % 1.7-9.3 Ua - Non Micro (a) 07/21/2016 Appearance clera Color yellow Glucose, Urine (a/[facility]/CTX) neg Bilirubin neg Ketones trace SP Grav 1.020 Blood neg PH 6.0 Protein neg Urobil 1.0 Nitrite neg Leukocytes ([facility]/Centrex) neg Comprehensive Metabolic Prof 07/21/2016 Sodium 138 [...] Low 4.2-7.0 Laboratory test finding 06/29/2006 PSA ([facility]/Centrex) <0.05 0.0-4.0 Comp Metabolic ([facility]) 08/17/2005 Glucose, Serum 113 mg/dL High 70-105 Male ([facility]/CTX) BUN ([facility]/Centrex) 15 mg/dL 6-26 Creatinine ([facility]/CTX) 0.9 mg/dL 0.6-1.4 BUN/Creatinin Ratio 16.6 8.0-36 Sodium 142 134-149 Potassium 4.9 3.6-5.5 Chloride 102 mEq/L 94-112 Co2 26 21-32 Calcium ([facility]/Centrex) 9.4 mg/dL 8.6-10.2 Total Protein 6.6 g/dL 6.3-8.1 Albumin ([facility]Centrex) 4.1 3.8-5.5 Globulin 2.5 2.0-4.8 A/G Ratio ([facility]/Centrex) 1.6 0.6-2.2 Alk Phos ([facility]) Male 79 U/L 22-95 Alt-M SGPT Male ([facility]) 29 10-40 Ast Sgot 20 U/L 5-34 Bilirubin, Total 0.6 mg/dL 0.2-1.3 Lipid Profile([facility]) Male 08/17/2005 Cholesterol 174 mg/dL 120-200 Triglyceride 100 mg/dL 30-200 HDL Cholesterol ([facility]) Male 43 mg/dL 30-70 LDL, Calculated ([facility]) 111 CALC 0-129 LDL Direct (/[facility]rex) - mg/dL 0-130 VLDL 20 0-50 HDL Risk Factor (a) 4.0 CALC Low 4.2-7.0 Electrolyte Panel ([facility]) 08/12/2004 Sodium 136 mmol/L 135-145 Potassium 4.5 mmol/L 3.5-5.0 Chloride 104 mmol/L 101-111 Co2 25.0 mmol/L 22-32 Anion Gap 7.0 mmol/L 2-11 Glucose, Serum ([facility]/CTX) 105 mg/dL 70-105 BUN (a/[facility]/Centrex) 15 mg/dL 6-24 Creatinine (a/[facility]/CTX) 0.9 mg/dL 0.5-1.4 CBC Electronic ([facility]) 08/12/2004 WBC 5.4 CUMM 4.8-10.8 RBC 4.94 CUMM 4.6-6.2 Hemoglobin (a/[facility]/CTX) 14.5 g/dL 14.0-18.0 Hematocrit (a/[facility]/CTX) 42 % 42-52 Mean Corpuscular Vol 86 [...] 0.1 0-0.6 Abs Basophils 0 0-0.2 Lipid Profile([facility]) Male 08/05/2004 Cholesterol 170 mg/dL 120-200 Triglyceride 93 mg/dL 30-200 HDL Cholesterol ([facility]) Male 45 mg/dL 30-70 LDL, Calculated ([facility]) 106 CALC 0-129 LDL, Direct - mg/dL 0-130 VLDL 19 0-50 HDL Risk Factor ([facility]) 3.8 CALC Low 4.2-7.0 Laboratory test finding 08/05/2004 PSA <0.05 0.0-4.0 CBC Electronic ([facility]) 08/05/2004 WBC 5.2 3.6-9.6 Lymphocytes 21.0 % [...] 8.6-10.2 Total Protein 7.5 g/dL 6.3-8.1 Albumin ([facility]/Centrex) 4.5 3.8-5.5 Globulin 3.0 2.0-4.8 A/G Ratio ([facility]rex) 1.5 0.6-2.2 Alk Phos (a) Male 75 U/L 22-95 Alt (SGPT) 33 10-40 Ast (Sgot) (a/[facility]rex) 22 U/mL 5-34 Total Bilirubin 0.7 Electrolyte Panel ([facility]) 10/02/2003 Sodium 134 mmol/L Low 135-145 Potassium [...] 8.6-10.0 Total Protein 7.3 g/dL 6.3-8.1 Albumin ([facility]/Centrex) 4.5 3.8-5.5 Globulin 2.8 2.0-4.8 A/G Ratio ([facility]/Centrex) 1.6 0.6-2.2 Alkaline Phosphatase (F/C/CTX) 61 U/L 22-95 Alt (SGPT) 26 10-40 Ast (Sgot) ([facility]/Centrex) 17 U/mL 5-34 Bilirubin, Total 0.5 mg/dL 0.2-1.3 Lipid Profile ([facility]) 08/14/2003 Cholesterol 162 mg/dL 120-200 Triglyceride 82 mg/dL 30-200 HDL-Chol 40 30-70 LDL-Calculated ([facility]) 106 CALC 0-129 VLDL 16 0-50 HDL Risk Factor ([facility]) 4.1 CALC Low 4.2-7.0 Laboratory test finding 08/14/2003 PSA 0.57 0.0-4.0 Liver Function ([facility]) 10/17/2002 Total Protein 7.0 g/dL 6.3-8.1 Albumin ([facility]/Centrex) 4.3 3.8-5.5 A/G Ratio ([facility]/Centrex) 1.6 0.6-2.2 Globulin 2.7 2.0-4.8 Alkaline Phosphatase 77 U/L 22-95 Alt (SGPT) 34 10-40 Ast (Sgot) ([facility]rex) 22 U/mL 5-34 Bilirubin, Total 0.4 mg/dL 0.2-1.3 Bilirubin, Direct 0.2 mg/dL 0-0.6 Bilirubin, Indirect 0.23 ml/dl 0.10-1.0 Lipid Profile ([facility]) 10/17/2002 Cholesterol 193 mg/dL 120-200 Triglyceride 135 mg/dL 30-200 HDL-Chol 39 30-70 LDL-Calculated ([facility]) 127 CALC 0-129 VLDL 27 0-50 HDL Risk Factor ([facility]) 4.9 CALC 4.2-7.0 Lipid Profile ([facility]) 07/27/2002 Cholesterol 256 mg/dL High 120-200 Triglyceride [...] Co2 29 21-32 Ua - Non Micro ([facility]) 06/28/2002 Appearance CLEAR YELLOW Glucose NEGATIVE Bilirubin NEGATIVE Ketones NEGATIVE SP Grav 1.010 Blood NEGATIVE PH 7.0 Protein NEGATIVE Urobil 0.2 Nitrite NEGATIVE Leukocytes NEGATIVE Ua - Micro ([facility]) 06/17/2002 Appearance CLOUDY YELLOW Glucose NEGATIVE Bilirubin NEGATIVE Ketones NEGATIVE SP Grav 1.025 Blood TRACE-INTACT PH 5.5 Protein NEGATIVE Urobil 1.0 Nitrite NEGATIVE Leukocytes NEGATIVE Hyaline - /Lpf Granular - /Lpf WBC'S - RBC'S 3-5 Mucus - /Lpf Epith RARE Bacteria - Amorphous - /Lpf Crystals RARE /Lpf Comments - Lipid Profile ([facility]) 01/06/2002 Cholesterol 245 mg/dL High 140-200 Triglyceride 152 mg/dL High 30-150 VLDL 30 0-50 LDL-Calculated 174 High 0-160 HDL-Chol 41 30-70 Ua - Micro ([facility]) 09/12/2001 Appearance CLEAR/YELLOW Glucose NEG Bilirubin NEG Ketones 15 SP Grav 1.015 Blood NEG PH 6.5 Protein NEG Urobil 1.0 Nitrite NEG Leukocytes NEG Hyaline - /Lpf Granular - /Lpf WBC'S 0-1 RBC'S 1-3 Mucus SM AMT /Lpf Epith - Bacteria - Amorphous - /Lpf Crystals - /Lpf Comments - Lipid Profile ([facility]) 09/12/2001 Cholesterol 228 mg/dL High 140-200 Triglyceride 88 mg/dL 30-150 VLDL 18 0-50 LDL-Calculated 132 0-160 HDL-Chol 78 High 30-70 CBC With Manual Dif ([facility]) 09/12/2001 WBC 13.9 High 3.6-9.6 RBC 5.55 3.90-5.70 Hemoglobin 16.1 g/dL 12.1 - 17.2 Hematocrit 48.6 % 36.1 - 50.3 Mean Corpuscular Vol 87.6 82.2-97.4 Mean Corpuscular Hemaglobin 29.1 27.6-33.3 Mean Corpuscular Hemo Concen 33.2 33.0-34.8 RDW 13.2 11.6-13.7 Platelets 279 10^3/ul 150-400 Mean Platelet Volume 7.1 Low 7.4-10.4 Neutrophils 63 Band 6 Lymph From [facility] 10 Monocytes 1 % Low 1.7-9.3 Eosinophils [...] Platelet Volume 7.2 Low 7.4-10.4 Lipid Profile ([facility]) 05/31/2000 Cholesterol 227 mg/dL High 140-200 Triglyceride 208 mg/dL High 30-150 VLDL 42 mg/dL 0-50 LDL-Calculated 138 0-160 HDL-Chol 47 mg/dL 30-70 Laboratory test finding 02/12/2000 PSA 1.7 NG/ML 0-4 63 Ua - Non Micro ([facility]) 02/12/2000 Appearance YELLOW CLEAR Glucose - Bilirubin - Ketones - SP Grav 1.010 Blood - PH 6.5 Protein - Urobil 0.2 Nitrite - Leukocytes - CBC With Diff ([facility]) 02/12/2000 WBC 6.9 /Hpf 3.6 - 9.6 [...] 7.7 fl 7.4 - 10.4 Comp Metabolic ([facility]) 02/12/2000 Albumin 4.3 GM/DL 3.80 - 5.50 [...] 0.6-2.2 BUN/Creatinin Ratio 13.6 8.0-36 Lipid Profile ([facility]) 02/12/2000 Cholesterol 276 mg/dL High 140-200 Triglyceride [...] 0.03 ng/mL Not supportive of diagnosis of ME 0.03 - 0.50 ng/mL Indeterminate: suggest serial studies if clinically indicated. Greater than 0.5 ng/mL Consistent with diagnosis of ME 3 Acute inflammation: >10.00 4 Because ethnic [...] <145 9 FASTING 10 Test Performed by: [place] [address] [employer] Calenderer: Heide Cheema, Ph.D. 11 Test Performed by: [place] [address] [employer] Calenderer: Heide Cheema, Ph.D. 12 Because ethnic data [...] Serum levels of PSA measured using the [employer] DXI Hybritech immunoassay should not be interpreted [...] levels of PSA measured using the [employer] [place] DXI Hybritech immunoassay should not be interpreted [...] levels within this range. Test Performed by: [address] [address] [employer] Calenderer: Sonny Yoo III, M.D. 20 Test Performed by: [address], [place] [address] [employer] Calenderer: Heide Cheema, Ph.D. 21 Test Performed by: [place] [address] [employer] Calenderer: Heide Cheema, Ph.D. 22 -- REFERENCE VALUE -- 25-HYDROXY D TOTAL (D2+D3) Optimum levels in the normal population are 25-80 Test Performed by: [address] [address] [employer] Calenderer: Sonny Yoo III, M.D. 23 Because ethnic [...] FASTING 26 FASTING 27 Test Performed by: [place] [address] [employer] Calenderer: Heide Cheema, Ph.D. 28 Test Performed by: [place] [address] [employer] Calenderer: Heide Cheema, Ph.D. 29 Serum levels of [...] D deficiency has been defined by the Clifford of Medicine and an Endocrine Society practice guideline as a level of serum 25-OH vitamin D less than 20 ng/mL (1,2). The Endocrine Society went on to further define vitamin D insufficiency as a level between 21 and 29 ng/mL (2). 1. IOM ([employer] of Medicine). 2010. Dietary reference intakes for calcium and D. [place]: The National Academies Press. 2. Farzaneh MF, Tiny MURRIETA, Angela STEPHENS, et al. Evaluation, treatment, and prevention of vitamin D deficiency: an Endocrine Society clinical practice guideline. JCEM. 2010; 96(7):1911-30. 32 results vianey'd 33 FASTING 34 Serum levels of PSA measured using the Y[employer] [place] DXI Hybritech immunoassay should not be interpreted [...] normal population are 25-80 Test Performed by: [facility] Dpt of Lab Med and Pathology [address] [place], [place] [id number] [employer] Calenderer: Sonny Yoo III, M.D. 41 MOD GRAM POSITIVE COCCI IN CLUSTERS FEW 42 METH RESIST S. AUREUS (MRSA) MOD^MODERATE^QTY 43 ---- RUN DATE: 11/12/10 [facility] NMI LIVE PAGE 1 RUN TIME: 1356 Specimen Inquiry RUN USER: INTERFACE -- Name: IAN WAGNER Simone NORRIS Status: REG REF Re11/10/10 Age/Sex: 60/M Unit#: [id number] Location: END : 48 -- Specimen: [id number] SOUT Spec Date: 11/10/[address]: Danilo [...] 11/12/10 1355 -- -- DEPARTMENT OF PATHOLOGY, [address] [place] [address] [facility] Permit #[id number] Piyush Jang M.D. Director Ryder Root M.D. Biochemical Engineer Dir karin -- 44 RESULT VIANEY'D 45 [...] normal population are 25-80 Test Performed by: [facility] Dpt of Lab Med and Pathology [address] [place] [address] [employer] Calenderer: Sonny Yoo III, M.D. 53 Test Performed by: [facility] D[facility] Med and Pathology [address] [place] [address] [employer] Calenderer: Sonny Yoo III, M.D. 54 Test Performed by: [place] [address] [employer] Calenderer: Heide Cheema, Ph.D. 55 * SERUM LEVELS OF PSA MEASURED USING THE IActive ACCESS HYBRITECH IMMUNOASSAY SHOULD NOT BE INTERPRETED [...] COMP? Y 62 . RESULTS OBTAINED USING [employer] MEIA METHODOLOGY. SERUM PSA RESULTS SHOULD BE [...] Description Status Comment 11/09/2016 Colonoscopy Completed 10/27/2010 93553 Electrocardiogram Complete Completed 04/22/2010 54608 Injection Subcutaneous Or Intramuscular Completed 04/22/2010 37901 Inject/Drain Joint/Bursa Major Completed 08/31/2006 33072 Electrocardiogram Complete Completed 07/19/[address] WHITE 02/12/2000 65356 Electrocardiogram Complete Completed Encounters Type Date Location Provider CPT E/M Dx Office Visit 11/23/2016 11:20a Main Office Will Candelario M.D. 61455 M54.5 Office Visit 08/28/2014 9:20a [facility] Will Candelario M.D. 47216 272.4 Office Visit 12/20/2012 8:00a [facility] Will Candelario M.D. 32113 272.4 Office Visit 09/13/2012 11:20a [facility] Will Candelario M.D. 14692 782.1 Office Visit 06/28/2012 9:10a [facility] Will Candelario M.D. 86606 401.9 V45.86 Office Visit 10/14/2011 9:40a Main Office Will Candelario M.D. 27429 366.9 401.9 427.9 v72.83 Office Visit 11/17/2010 9:10a [facility] Primitivo Miranda M.D. 20199 427.9 401.9 278.00 272.4 780.50 333.94 Office Visit 10/27/2010 3:20p [facility] Primitivo Miranda M.D. 79777 427.9 401.9 278.00 272.4 780.50 333.94 268.9 Office Visit 10/06/2010 9:40a Main Office Will Candelario M.D. 88484 401.9 272.0 995.3 Office Visit 07/24/2010 9:10a [facility] Master Murray M.D. 76574 465.9 009.0 401.9 Office Visit 04/22/2010 4:00p [facility] Will Candelario M.D. 52351 726.10 Office Visit 10/14/2009 9:00a Main Office Will Candelario M.D. 28051 272.0 401.9 278.00 Office Visit 04/16/2009 11:10a [facility] Will Candelario M.D. 40301 272.0 401.9 Office Visit 09/28/2008 10:30a [facility] Tamia Page 00757 461.0 M.DReece Office Visit 03/20/2008 1:20p [facility] Will Candelario M.D. 52120 366.9 V72.83 Office Visit 09/15/2007 2:10p [facility] Master Murray M.D. 15773 465.9 466.0 Office Visit 08/02/2007 11:00a [facility] Will Candelario M.D. 65629 401.9 272.0 724.5 239.5 Office Visit 01/04/2007 9:40a [facility] Will Candelario M.D. 88958 401.9 272.0 788.37 V72.83 Office Visit 08/31/2006 9:40a [facility] Will Candelario M.D. 13805 401.9 272.0 788.37 V72.83 Office Visit 06/29/2006 9:10a [facility] Will Candelario M.D. 40168 401.9 272.0 239.5 429.2 272.4 Office Visit 12/17/2005 9:20a [facility] Will Candelario M.D. 37987 401.9 272.0 Office Visit 08/17/2005 8:00a Main Office Will Candelario M.D. 62497 401.9 272.0 Office Visit 08/05/2004 9:20a [facility] Will Candelario M.D. 02052 239.5 429.2 Office Visit 08/14/2003 9:40a [facility] Will Candelario M.D. 63401 600.00 272.4 401.9 V71.1 Office Visit 10/17/2002 9:00a [facility] Will Candelario M.D. 19349 272.0 401.1 Office Visit 09/07/2002 9:10a [facility] Master Murray M.D. 68849 462 461.9 Office Visit 08/15/2002 9:10a [facility] Will Candelario M.D. 08445 272.0 401.1 Office Visit 06/28/2002 10:00a [facility] Jimmie Martin M.D. 26071 053.9 599.7 Office Visit 06/17/2002 10:50a Main Office Jimmie Martin M.D. 02592 053.9 599.7 Office Visit 01/06/2002 4:10p [facility] Office Will aCndelario M.D. 04234 Office Visit 09/19/2001 11:00a [facility] Office Piyush Martin M.D. 91007 Office Visit 09/12/2001 10:10a [facility] Piyush Martin M.D. 06790 Office Visit 07/29/2001 9:20a [facility] Office Piyush Martin M.D. 65410 Office Visit 04/15/2001 1:40p [facility] Office Piyush Martin M.D. 21648 Office Visit 05/31/2000 9:00a [facility] Office Piyush Martin M.D. 76764 Office Visit 03/15/2000 9:00a [facility] Office Piyush Martin M.D. 29240 Plan of Care 08/20/2017 - Sis Dubois, NPB02.9 Zoster without complicationsAllNew Medication:Valtrex 1 gm
--- NOTE | 2017-09-05 18:54 | ED ---
Syncope/Near Syncope - HPI Summary HPI Summary: Patient presents with syncopal episode this afternoon after 3:30 PM. Reports he was sitting in his chair and got up to get a snack out of the refrigerator. As he pulled on the refrigerator handle, he had pain in his right shoulder which made him feel "queasy". He ate a few pieces of pepperoni but shortly thereafter felt sweaty and nauseous so he went to the bathroom in an effort to rinse water on his face but "passed out" before he made it there. His reports hearing a "thud" from the other room and patient does not recall the details of falling although he thinks he landed on his knees first. He then reports standing up and attempting to walk back out to his chair however he "passed out" again. His reports he was sweating both times and had a BM after the 2nd episode. Both do not feel he hit his head however did not witness the first fall. An ambulance was called at this point and patient brought to the ED. He does report earlier today around 10:00am he was walking outside and slipped 3 times on the ice. The first time, he landed on his right side/arm which caused him to have acute shoulder pain however this did not last long - denies numbness, tingling, weakness. He reports he was able to get up on his own and as he continued up the [employer], slipped 2 more times falling on his knees and butt. Was alert for all of these episodes, denies head injury, headache, dizziness, nausea, visual change, neck pain. He does not take any anticoagulants although he does take an aspirin 81 mg daily. He also reports taking metoprolol for a "heart rhythm issue". He does not believe he has a heart murmur however his daughters both state that he does have a benign heart murmur. He reports the only time he's had syncope in the past was after an acute pain episode of cramping in his legs - has not had syncope since. Denies chest pain, shortness of breath, bloody cough, back pain, calf pain. He does not smoke however has a history of prostate cancer. He is a bariatric patient as well, underwent surgery 5-6 years ago. He reports he takes B12 and Union vitamins daily. He has an annual nutrition panel screening without any findings of concern in the past - also reports no h/o issues with low glucose levels - has had breakfast and lunch today with snacks in between. 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 He's also had a cardiac catheterization. All cardiac testing has been benign to date per pt. Currently feels well without pain, weakness, resp sx. He does admit he's had a URI this past week but it's mild and w/o fever. He also admit to 2nd dx of shingles 2 weeks ago on his head - took valtrex to completion and no residual sx. - History Of Current Complaint Chief Complaint: EDSyncope Time Seen by Provider: 09/05/17 18:11 Hx Obtained From: Patient, Family/Speech Language Pathology Assistant - , daughters, friends - Allergies/Home Medications Allergies/Adverse Reactions: Allergies Allergy/AdvReac Type Severity Reaction Status Date / Time No Known Allergies Allergy Verified 11/09/16 14:53 PMH/Surg Hx/FS Hx/Imm Hx Previously Healthy: No - recovering from shingles, URI Endocrine/Hematology History: Denies: Hx Diabetes Cardiovascular History: Reports: Hx Coronary Artery Disease - MILD, Hx Hypercholesterolemia, Hx Hypertension Denies: Hx Angina, Hx Myocardial Infarction, Hx Valvular Heart Disease GI History: Reports: Other GI Disorders - Gastric Bypass History: Reports: Other Problems/Disorders - Prostate removed + radiation + sphincter reconstruction Sensory History: Reports: Hx Contacts or Glasses Opthamlomology History: Reports: Hx Contacts or Glasses - Cancer History Cancer Type, Location and Year: PROSTATE Hx Chemotherapy: Yes Hx Radiation Therapy: Yes - Surgical History Surgery Procedure, Year, and Place: PROSTATE CANCER WITH RESECTION, GASTRIC BYPASS Hx Anesthesia Reactions: No Infectious Disease History: No Infectious Disease History: Denies: Hx Clostridium Difficile, Hx Hepatitis, Hx Human Immunodeficiency Virus (HIV), Hx of Known/Suspected MRSA, Hx Shingles, Hx Tuberculosis, Traveled Outside the [place] in Last 30 Days - Social History Alcohol Use: None Substance Use Type: Reports: None Smoking Status (MU): Former Smoker Type: Cigarettes Length of Time of Smoking/Using Tobacco: 37 Have You Smoked in the Last Year: No Physical Exam Vital Signs On Initial Exam: Initial Vitals Temp Pulse Resp BP Pulse Ox 98.2 F 62 18 139/66 97 09/05/17 17:27 09/05/17 17:27 09/05/17 17:27 09/05/17 17:27 09/05/17 17:27 Diagnostics - Vital Signs Vital Signs Temp Pulse Resp BP Pulse Ox 09/05/17 17:44 62 15 97 09/05/17 17:27 98.2 F 62 18 139/66 97 - Laboratory Result Diagrams: 09/05/17 18:50 09/05/17 18:50 Lab Statement: Any lab studies that have been ordered have been reviewed, and results considered in the medical decision making process. Discharge - Discharge Plan Condition: Stable Disposition: HOME Patient Education Materials: Rotator Cuff Injury (ED), Syncope (ED), Fall Prevention (ED) Referrals: Will Candelario MD [Primary Care Provider] - Additional Instructions: The definitive cause of your syncopal episode was not identified tonight however it is suspected you had a vasovagal reaction from acute pain in your shoulder, causing you to lose consciousness briefly. Your cardiac, pulmonary and neurological exams were all negative for acute pathology. It is recommended that you follow-up early this week with her PCP - call tomorrow to schedule an appointment. In the meantime, stay hydrated and well-nourished. *If you have return of symptoms and/or chest pain, shortness of breath, headache , change in vision, nausea, vomiting, diarrhea return to the emergency department
[2017-09-05 19:11] LABS: ABS Basophils 0 10^3/ul (0-0.2); ABS Eosinophils 0.1 10^3/ul (0-0.6); ABS Lymphocytes 0.9 10^3/ul (1.0-4.8); ABS Monocytes 0.9 10^3/ul (0-0.8); ABS Nucleated RBC 0 10^3/ul; Eosinophil % 0.6 % (0-6); Hematocrit 42 % (42-52); Hemoglobin 14.7 g/dl (14.0-18.0); Lymphocyte % 10.3 % (25-47); Mean Corpuscular HGB Conc 35 g/dl (31-36); Mean Corpuscular Hemoglobin 30 pg (27-31); Mean Corpuscular Volume 86 fL (80-94); Mean Platelet Volume 7 um3 (7.4-10.4); Nucleated Red Blood Cells % 0.2; Platelet Count 205 10^3/ul (150-450); Red Blood Count 4.91 10^6/ul (4.0-5.4); Red Cell Distribution Width 14 % (10.5-15)
[2017-09-05 19:21] LABS: EGFR Non-African American 121.8 (>60)
--- NOTE | 2017-09-05 19:48 | RAD ---
INDICATION: Trauma, syncope. COMPARISON: There are no prior studies available for comparison. TECHNIQUE: Contiguous axial sections of the brain were obtained from the skull base to the vertex without contrast. FINDINGS: The ventricles, cisterns and sulci are enlarged consistent with age-related atrophy. No significant focal abnormality or mass effect is seen. There is no evidence for hemorrhage. No significant focal osseous abnormality is seen. The visualized portion of the paranasal sinuses and mastoid air cells appear clear. IMPRESSION: NO EVIDENCE FOR ACUTE INTRACRANIAL ABNORMALITY.
--- NOTE | 2017-09-05 19:50 | RAD ---
INDICATION: Right shoulder injury. TECHNIQUE: 4 views of the right shoulder were obtained. FINDINGS: The bones are in normal alignment. No fracture is seen. There is mild osteoarthritic change in the acromioclavicular and glenohumeral joints. IMPRESSION: NO EVIDENCE OF FRACTURE.
--- NOTE | 2017-09-05 19:51 | RAD ---
INDICATION: Syncope. COMPARISON: Comparison is made with prior study from November 18, 2014. TECHNIQUE: Dual-energy PA views of the chest were obtained. FINDINGS: The heart is within normal limits in size. Mediastinal and hilar contours appear within normal limits. The lungs are clear. No pleural effusion is present. IMPRESSION: NO EVIDENCE FOR ACTIVE CARDIOPULMONARY DISEASE.
[2017-09-05 23:34] VITALS: BP 134/69
== END 2017-09-05 23:32 | disposition home or self-care (01) ==
LOC: ED 17:25
DX: R55 Syncope and collapse (principal); S49.90XA Unspecified injury of shoulder and upper arm, unspecified arm, initial encounter; I25.10 Atherosclerotic heart disease of native coronary artery without angina pectoris; Z87.891 Personal history of nicotine dependence; W19.XXXA Unspecified fall, initial encounter; Y92.9 Unspecified place or not applicable
CPT/HCPCS: 36415; 70450; 71045; 80053; 83605; 83735; 84443; 84484; 85025; 93005; 99284

== ENCOUNTER 2024-01-20 19:16 | Inpatient (IN) ==
[2024-01-20 19:54] LABS: ABS Basophils 0.1 10^3/uL (0.0-0.1); ABS Lymphocytes 1.1 10^3/uL (1.0-4.8); ABS Monocytes 0.7 10^3/uL (0.0-1.1); ABS Neutrophils 5.6 10^3/uL (1.5-7.6); ABS Nucleated RBC 0.01 10^3/ul; Eosinophil % 0.6 %; Hematocrit 40.7 % (38-53); Hemoglobin 13.7 g/dL (13.2-16.3); Lymphocyte % 14.7 %; Mean Corpuscular Hemoglobin 29.2 pg (27-33); Mean Corpuscular Hgb Conc 33.7 g/dL (31-36); Mean Corpuscular Volume 86.5 fL (80-97); Mean Platelet Volume 6.8 fL (7.5-11.2); Nucleated Red Blood Cells % 0.1 %/100WBC (0.0-0.8); Platelet Count 272 10^3/uL (150-450); White Blood Count 7.5 10^3/uL (3.6-10.2)
[2024-01-20 20:19] LABS: INR 1.05 (0.83-1.13)
[2024-01-20 20:30] LABS: Albumin 4.1 g/dL (3.2-5.2); Albumin/Globulin Ratio 1.7 (1-3); Calcium 9.6 mg/dL (8.6-10.3); Creatinine, Serum 0.98 mg/dL (0.67-1.17); Globulin 2.4 g/dL (2-4); Potassium 4.8 mmol/L (3.5-5.0); Total Bilirubin 0.4 mg/dL (0.2-1.0); Total Protein 6.5 g/dL (6.4-8.9); eGFR CKD-EPI 80.4 (>60)
[2024-01-20 21:39] LABS: High Sensitivity Troponin 1 Hr 1427 pg/mL (<20)
[2024-01-20 23:03] LABS: Creatinine, Serum 0.87 mg/dL (0.67-1.17)
[2024-01-20] MEDS: Heparin DRIP 25,000 UNITS BAG 25,000 UNITS/250 ML BAG IV SCH (23:06)
[2024-01-20] MEDS: Heparin 5000 UNITS/ML 1 mL VIAL IV SCH (23:08)
[2024-01-21] MEDS: Iohexol 350 (CONTRAST) 500 ML MDV IV ONE (03:43)
[2024-01-21 03:59] LABS: High Sensitivity Troponin 3 Hr 6500 pg/mL (<20)
[2024-01-21 06:47] LABS: Creatinine, Serum 0.66 mg/dL (0.67-1.17); Magnesium 1.9 mg/dL (1.9-2.7); Phosphorus 3.3 mg/dL (2.5-5.0); Potassium 4.1 mmol/L (3.5-5.0); eGFR CKD-EPI 97.8 (>60)
[2024-01-21] MEDS: Aspirin EC 81 mg TAB.EC (enteric coated) PO SCH (08:21)
[2024-01-21 08:51] LABS: ABS Eosinophils 0.1 10^3/uL (0.0-0.5); ABS Lymphocytes 1.1 10^3/uL (1.0-4.8); ABS Monocytes 0.7 10^3/uL (0.0-1.1); ABS Neutrophils 5.6 10^3/uL (1.5-7.6); ABS Nucleated RBC 0.01 10^3/ul; Eosinophil % 0.9 %; Hematocrit 40.2 % (38-53); Hemoglobin 13.8 g/dL (13.2-16.3); Lymphocyte % 14.4 %; Mean Corpuscular Hemoglobin 29.6 pg (27-33); Mean Corpuscular Hgb Conc 34.2 g/dL (31-36); Mean Corpuscular Volume 86.4 fL (80-97); Mean Platelet Volume 7.2 fL (7.5-11.2); Nucleated Red Blood Cells % 0.1 %/100WBC (0.0-0.8); Platelet Count 243 10^3/uL (150-450); Red Blood Count 4.66 10^6/uL (4.06-5.63); White Blood Count 7.5 10^3/uL (3.6-10.2)
[2024-01-21] MEDS ORDERED: Sulfur Hexaflouride MICROSPHR 25 MG VIAL ONE (09:40)
[2024-01-21] MEDS: Sulfur Hexaflouride MICROSPHR 25 MG VIAL IV ONE ×2 (09:43→14:01)
[2024-01-21] MEDS: NS 0.9% 1000 ml BAG 1,000 ML IV SCH (11:15)
[2024-01-21] MEDS: Midazolam 10 mg/10 ml VIAL 1 mg/ml 10 ml VIAL (10 mg) IV SLOW PU ONE (11:43)
[2024-01-21] MEDS: fentaNYL 100 mcg/2 ml 50 MCG/ML VIAL IV SLOW PU ONE (11:43)
[2024-01-21] MEDS ORDERED: fentaNYL 100 mcg/2 ml 50 MCG/ML VIAL ONE (12:48)
[2024-01-21] MEDS ORDERED: VERAPAMIL 2.5 MG/ML 2 ML VIAL ** 5 mg/2 ml ONE (12:48)
[2024-01-21] MEDS ORDERED: Midazolam 5 mg/5 ml VIAL 1 mg/ml 5 ml VIAL (5 mg) ONE (12:48)
[2024-01-21] MEDS ORDERED: Heparin 1,000 UNIT/ML 10 ml (10,000 UNITS) CATHLAB/DIALYSIS ONE (12:48)
[2024-01-21] MEDS ORDERED: Iohexol 350 (CONTRAST) 200 ML MDV IV ONE (12:49)
[2024-01-21] MEDS ORDERED: nitroGLYCERIN DRIP 25,000 MCG/250 ML BTL ONE (12:49)
[2024-01-21] MEDS ORDERED: Lidocaine 1% MPF 5 ML VIAL ONE (12:49)
[2024-01-21] MEDS ORDERED: Heparin 2 UNITS/ML 1000 mls 2,000 ML IV ONE (12:49)
[2024-01-21] MEDS ORDERED: Heparin 2 UNITS/ML 1000 mls 1,000 ML IV ONE (13:14)
[2024-01-21] MEDS ORDERED: Bivalirudin 250 MG VIAL ONE (13:29)
[2024-01-22 04:37] LABS: ABS Eosinophils 0.1 10^3/uL (0.0-0.5); ABS Lymphocytes 1.3 10^3/uL (1.0-4.8); ABS Monocytes 0.7 10^3/uL (0.0-1.1); ABS Neutrophils 3.5 10^3/uL (1.5-7.6); Eosinophil % 2.6 %; Hematocrit 39.3 % (38-53); Hemoglobin 13.2 g/dL (13.2-16.3); Lymphocyte % 22.9 %; Mean Corpuscular Hemoglobin 28.9 pg (27-33); Mean Corpuscular Hgb Conc 33.5 g/dL (31-36); Mean Corpuscular Volume 86.2 fL (80-97); Mean Platelet Volume 7.1 fL (7.5-11.2); Nucleated Red Blood Cells % 0.1 %/100WBC (0.0-0.8); Platelet Count 241 10^3/uL (150-450); Red Blood Count 4.56 10^6/uL (4.06-5.63); Red Cell Distribution Width 14.1 % (12-17); White Blood Count 5.7 10^3/uL (3.6-10.2)
[2024-01-22 05:36] VITALS: BP 126/65
== END 2024-01-22 10:15 | disposition short-term general hospital (02) | DRG 282 ==
LOC: ED 19:16 → EDHOLD 01-21 01:30 → SUATTDRO 01-21 01:30 → MEDTELE 01-21 03:50
PROVIDERS: ADMIT Internal Medicine; ATTEND Hospitalist